=== PATIENT | male | born 1960 | race African-American/Black ===

== ENCOUNTER 2017-03-08 13:27 | Inpatient (IN) | payer OTHER ==
[2017-03-08 16:21] LABS: Hematocrit 38 % (42-52); Hemoglobin 12.4 g/dl (14.0-18.0); Mean Corpuscular HGB Conc 33 g/dl (31-36); Mean Corpuscular Hemoglobin 33 pg (27-31); Mean Corpuscular Volume 99 fL (80-94); Mean Platelet Volume 8 um3 (7.4-10.4); Red Cell Distribution Width 14 % (10.5-15)
[2017-03-08 16:23] LABS: ALT 19 U/L (7-52); AST 34 U/L (13-39); Albumin 4.2 g/dL (3.2-5.2); Alkaline Phosphatase 102 U/L (34-104); Anion Gap 8 mmol/L (2-11); BUN/Creatinine Ratio 7.1 (8-20); Blood Urea Nitrogen 6 mg/dL (6-24); CO2 Carbon Dioxide 22 mmol/L (22-32); Calcium 9.4 mg/dL (8.6-10.3); Chloride 107 mmol/L (101-111); EGFR African American 120.8 (>60); EGFR Non-African American 93.9 (>60); Globulin 2.9 g/dL (2-4); Glucose 80 mg/dL (70-100); Potassium 3.8 mmol/L (3.5-5.0); Sodium 137 mmol/L (133-145); Total Protein 7.1 g/dL (6.4-8.9)
[2017-03-08 17:04] LABS: Acetaminophen < 15 mcg/mL; Alcohol 23 mg/dL (<10); Salicylate < 2.50 mg/dL (<30)
[2017-03-08 17:07] LABS: TSH (Thyroid Stimulating Horm) 0.74 mcIU/mL (0.34-5.60)
[2017-03-08 20:17] LABS: Urine Bilirubin Negative (Negative); Urine Glucose Negative (Negative); Urine Nitrite Negative (Negative)
[2017-03-08 20:31] LABS: Benzodiazepine Urine Screen None Detected (None Detect)
--- NOTE | 2017-03-08 22:12 | ED ---
Rebecca Childers Alok, scribed for Osmany Pepe MD on 03/08/17 at 2206 . Progress - Progress Note Progress Note: @ 2113: 9.13 voluntary paper work done for pt admission with dx of psychosis to the behavioral health unit. condition stable - Consult/PCP Time Called: 18:00 Course/Dx - Diagnoses Provider Diagnoses: Psychosis The documentation as recorded by the lizethibRebecca sepulveda Alok accurately reflects the service I personally performed and the decisions made by me, Osmany Pepe MD.
[2017-03-08] MEDS: busPIRone TAB* 30 MG PO SCH (22:15)
[2017-03-08] MEDS ORDERED: Al Hydrox/Mg Hydrox/Simet LIQ* 30 ML UDC PO PRN (22:28)
[2017-03-08] MEDS ORDERED: Mouth Piece, Nicotine* 1 EACH CARTRIDGE INH SCH (22:28)
[2017-03-08] MEDS ORDERED: busPIRone TAB* 30 MG ONE (22:35)
[2017-03-09] MEDS: Vitamin THERAPEUTIC TAB PO SCH (08:09)
[2017-03-09] MEDS: busPIRone TAB* 30 MG PO SCH ×2 (08:09→20:10)
--- NOTE | 2017-03-09 11:06 | ED ---
Hever Childers Auryana, scribed for Cornelio Sanchez MD on 03/08/17 at 1444 . Psychiatric Complaint - HPI Summary HPI Summary: 56 y/o male presents to ED with visual and auditory hallucinations "for days". Patient denies SI and HI, but nurse says that patient "wanted to get hit with a car." He denies CP and SOB. PMHx of depression-Rx. - History Of Current Complaint Time Seen by Provider: 03/08/17 15:11 Hx Obtained From: Patient Onset/Duration: Lasting Days, Still Present Timing: Constant Severity Initially: Mild Severity Currently: Mild Character: Depressed Associated Signs And Symptoms: Positive: Hallucinating - Visual and auditory Related History: Positive For: Prior Psychiatric Issues - History of depression Has Suicidal: Denies: Thoughts Has Homicidal: Denies: Thoughts - Allergies/Home Medications Allergies/Adverse Reactions: Allergies Allergy/AdvReac Type Severity Reaction Status Date / Time Aspirin Allergy SEVERE GI Verified 02/24/16 13:03 UPSET Home Medications: Home Medications Allopurinol TAB* [Zyloprim 100 MG TAB*] 100 mg PO DAILY 03/08/17 [History Confirmed 03/08/17] Cetirizine* [ZyrTEC 10 MG TAB*] 10 mg PO DAILY 03/08/17 [History Confirmed 03/08] Elbasivir/Grazoprevir 50/100(N [Zepatier 50/100(NF)] 1 tab PO DAILY 03/08/17 [ History Confirmed 03/08/17] busPIRone TAB* [Buspar TAB *] 30 mg PO BID 03/08/17 [History Confirmed 03/08/17] PMH/Surg Hx/FS Hx/Imm Hx Cardiovascular History: Reports: Hx Hypertension - NO MEDS NOW Denies: Hx Pacemaker/ICD GI History: Denies: Other GI Disorders History: Denies: Other Problems/Disorders Musculoskeletal History: Reports: Hx Arthritis - BILATERAL KNEES, Hx Rheumatoid Arthritis, Other Musculoskeletal History - GOUT-BILATERAL KNEES, GREAT TOES, SHOULDERS, WRIST Sensory History: Denies: Hx Contacts or Glasses, Hx Hearing Aid Opthamlomology History: Denies: Hx Contacts or Glasses Neurological History: Denies: Other Neuro Impairments/Disorders Psychiatric History: Denies: Hx Panic Disorder - Cancer History Cancer Type, Location and Year: PROSTATE - Surgical History Surgery Procedure, Year, and Place: 2009 RIGHT KN[place]THROSCOPIC [place] [facility] [place] [facility] [place], [facility] Hx Anesthesia Reactions: No Infectious Disease History: Denies: Traveled Outside the [place] in Last 30 Days - Family History Known Family History: Positive: Cardiac Disease, Hypertension - Social History Occupation: Unemployed Lives: With Family - Alcohol Use: Daily Alcohol Amount: 2 PER DAY Substance Use Type: Reports: None Smoking Status (MU): Light Every Day Tobacco Smoker Amount Used/How Often: 1/2 PACK A DAY Length of Time of Smoking/Using Tobacco: 10 PLUS YEARS Have You Smoked in the Last Year: Yes Review of Systems Constitutional: Negative Negative: Fever Eyes: Negative ENT: Negative Cardiovascular: Negative Negative: Chest Pain Respiratory: Negative Negative: Shortness Of Breath Gastrointestinal: Negative Genitourinary: Negative Musculoskeletal: Negative Skin: Negative Neurological: Negative Positive: Depressed All Other Systems Reviewed And Are Negative: Yes Physical Exam - Summary Physical Exam Summary: VITAL SIGNS: Reviewed. GENERAL: Patient is a well-developed and nourished male who is lying comfortable in the stretcher. Patient is not in any acute respiratory distress. HEAD AND FACE: No signs of trauma. No ecchymosis, hematomas or skull depressions. No sinus tenderness. EYES: PERRLA, EOMI x 2, No injected conjunctiva, no nystagmus. EARS: Hearing grossly intact. Ear canals and tympanic membranes are within normal limits. MOUTH: Oropharynx within normal limits. NECK: Supple, trachea is midline, no adenopathy, no JVD, no carotid bruit, no c- spine tenderness, neck with full ROM. CHEST: Symmetric, no tenderness at palpation LUNGS: Clear to auscultation bilaterally. No wheezing or crackles. CVS: Regular rate and rhythm, S1 and S2 present, no murmurs or gallops appreciated. ABDOMEN: Soft, non-tender. No signs of distention. No rebound no guarding, and no masses palpated. Bowel sounds are normal. EXTREMITIES: FROM in all major joints, no edema, no cyanosis or clubbing. NEURO: Alert and oriented x 3. No acute neurological deficits. Speech is normal and follows commands. SKIN: Dry and warm PSYCH: Depressed, quiet, and denies any suicidal thoughts or plan. No homicidal thoughts or plan. No signs of psychosis or pressure speech. No tangential speech. Triage Information Reviewed: Yes Vital Signs On Initial Exam: Initial Vitals Temp Pulse Resp BP Pulse Ox 99.1 F 68 16 110/58 99 03/08/17 13:40 03/08/17 13:40 03/08/17 13:40 03/08/17 13:40 03/08/17 13:40 Vital Signs Reviewed: Yes Diagnostics - Vital Signs Vital Signs Temp Pulse Resp BP Pulse Ox 03/08/17 13:40 99.1 F 68 16 110/58 99 - Laboratory Lab Results: Lab Results 03/08/17 03/08/17 Range/Units 15:59 15:59 WBC 7.0 (3.5-10.8) 10^3/ul RBC 3.80 L (4.0-5.4) 10^6/ul Hgb 12.4 L (14.0-18.0) g/dl Hct 38 L (42-52) % MCV 99 H (80-94) fL MCH 33 H (27-31) pg MCHC 33 (31-36) g/dl RDW 14 (10.5-15) % Plt Count 342 (150-450) 10^3/ul MPV 8 (7.4-10.4) um3 Neut % (Auto) 53.9 (38-83) % Lymph % (Auto) 36.9 (25-47) % [place] % (Auto) 6.1 (1-9) % Eos % (Auto) 2.2 (0-6) % Baso % (Auto) 0.9 (0-2) % Absolute Neuts (auto) 3.8 (1.5-7.7) 10^3/ul Absolute Lymphs (auto) 2.6 (1.0-4.8) 10^3/ul Absolute Monos (auto) 0.4 (0-0.8) 10^3/ul Absolute Eos (auto) 0.2 (0-0.6) 10^3/ul Absolute Basos (auto) 0.1 (0-0.2) 10^3/ul Absolute Nucleated RBC 0.02 10^3/ul Nucleated RBC % 0.3 Sodium 137 (133-145) mmol/L Potassium 3.8 (3.5-5.0) mmol/L Chloride 107 (101-111) mmol/L Carbon Dioxide 22 (22-32) mmol/L Anion Gap 8 (2-11) mmol/L BUN 6 (6-24) mg/dL Creatinine 0.85 (0.67-1.17) mg/dL Est GFR ( Amer) 120.8 (>60) Est GFR (Non-Af Amer) 93.9 (>60) BUN/Creatinine Ratio 7.1 L (8-20) Glucose 80 (70-100) mg/dL Calcium 9.4 (8.6-10.3) mg/dL Total Bilirubin 0.70 (0.2-1.0) mg/dL AST 34 (13-39) U/L ALT 19 (7-52) U/L Alkaline Phosphatase 102 (34-104) U/L Total Protein 7.1 (6.4-8.9) g/dL Albumin 4.2 (3.2-5.2) g/dL Globulin 2.9 (2-4) g/dL Albumin/Globulin Ratio 1.4 (1-3) TSH 0.74 (0.34-5.60) mcIU/mL Salicylates < 2.50 (<30) mg/dL Acetaminophen < 15 mcg/mL Serum Alcohol 23 H (<10) mg/dL Result Diagrams: 03/08/17 15:59 03/08/17 15:59 Lab Statement: Any lab studies that have been ordered have been reviewed, and results considered in the medical decision making process. Course/Dx - Course Assessment/Plan: All blood work WNL. He is medically cleared at 16:30. He is awaiting for a MHE - pending on signout to DR. LARSEN at 19:00. . Patient is hemodynamically stable and A+O x 3. - Differential Dx/Clinical Impression Differential Diagnosis/HQI/PQRI: Positive: Depression, Other - Auditory and Visual hallucinations Provider Diagnosis: Psychosis Discharge - Discharge Plan Condition: Stable Disposition: OTHER Discharge Disposition Comment: SIGNOUT TO DR. LARSEN AT 19:00 PENDING MHE AND DISPOSITION The documentation as recorded by the Hever abdi Auryana accurately reflects the service I personally performed and the decisions made by , Cornelio Sanchez MD.
[2017-03-09] MEDS: Acetaminophen TAB* 325 MG PO PRN (11:37)
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
[2017-03-10] MEDS: Cyanocobalamin TAB* 500 MCG PO SCH (08:42)
[2017-03-10] MEDS: busPIRone TAB* 30 MG PO SCH ×2 (08:42→20:05)
[2017-03-10] MEDS: Folic Acid TAB* 1 MG PO SCH (08:43)
[2017-03-10] MEDS: Thiamine TAB* 100 MG TAB PO SCH (08:43)
[2017-03-10] MEDS: Vitamin THERAPEUTIC TAB PO SCH (08:43)
[2017-03-10] MEDS: Acetaminophen TAB* 325 MG PO PRN (16:15)
[2017-03-11] MEDS: Folic Acid TAB* 1 MG PO SCH (08:28)
[2017-03-11] MEDS: Thiamine TAB* 100 MG TAB PO SCH (08:28)
[2017-03-11] MEDS: busPIRone TAB* 30 MG PO SCH ×2 (08:28→20:03)
[2017-03-11] MEDS: Vitamin THERAPEUTIC TAB PO SCH (08:28)
[2017-03-11] MEDS: Cyanocobalamin TAB* 500 MCG PO SCH (08:28)
--- NOTE | 2017-03-11 13:10 | PN ---
MHU: Group Therapy Note - Service Type Service Type: 87133 Group Psychotherapy - Cognitive Behavioral Group Therapy ( CBT):Patient was attentive and participatory in CBT programming this morning, and remained in good behavioral control. Patient expressed positive insights regarding relevant treatment interventions and goals.
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
[2017-03-11] MEDS: diPHENhydraMINE PO* 25 MG PO PRN (13:55)
--- NOTE | 2017-03-11 14:09 | RAD ---
Indication: Confusion. CT of the brain was performed without IV contrast. Ventricular structures are midline. No midline shift is noted. The extra-axial spaces are unremarkable. There is no evidence of intracranial mass or hemorrhage. No other high or low density lesions are identified. Mastoid air cells and paranasal sinuses are unremarkable. IMPRESSION: No intracranial mass or hemorrhage is noted.
[2017-03-11] MEDS: Allopurinol TAB* 100 MG PO SCH (16:25)
[2017-03-11] MEDS: ELBASVIR PO SCH (16:26)
[2017-03-11] MEDS: GRAZOPREVIR PO SCH (16:26)
[2017-03-11] MEDS: Colchicine* 0.6 MG TAB PO SCH (20:04)
[2017-03-11] MEDS: risperiDONE TAB* 1 MG PO SCH (20:04)
[2017-03-12] MEDS: busPIRone TAB* 30 MG PO SCH ×2 (07:53→19:56)
[2017-03-12] MEDS: Vitamin THERAPEUTIC TAB PO SCH (07:53)
[2017-03-12] MEDS: Colchicine* 0.6 MG TAB PO SCH ×2 (07:53→19:56)
[2017-03-12] MEDS: Allopurinol TAB* 100 MG PO SCH (07:53)
[2017-03-12] MEDS: Thiamine TAB* 100 MG TAB PO SCH (07:53)
[2017-03-12] MEDS: Cyanocobalamin TAB* 500 MCG PO SCH (07:53)
[2017-03-12] MEDS: Folic Acid TAB* 1 MG PO SCH (07:53)
[2017-03-12 08:07] LABS: HDL Cholesterol 52.5 mg/dL
[2017-03-12] MEDS: GRAZOPREVIR PO SCH ×2 (09:24→14:02)
[2017-03-12] MEDS: ELBASVIR PO SCH ×2 (09:24→14:02)
[2017-03-12] MEDS: diPHENhydraMINE PO* 25 MG PO PRN (15:34)
[2017-03-12] MEDS ORDERED: Mouth Piece, Nicotine* 1 EACH CARTRIDGE ONE (16:10)
[2017-03-12] MEDS: Nicotine Inhaler* 10 MG AMP INH PRN (16:10)
--- NOTE | 2017-03-12 16:32 | PN ---
Subjective - Subjective Service Type: 07491 Hosp care 15 min low complexity Subjective: The patient remains confused but good natured. His has spoken to SW and reported that she cannot continue to care for Shayan in her home. The patient c/o left great toe pain for three days duration. Otherwise, he offers no complaints and cannot tell why he is in the hospital. He denies SI or HI. Objective - Appearance Appearance: Well Developed/Nourished Dysmorphic Features: No Grooming: Fairly Well Kept - Behavior Psychomotor Activities: Normal Exhibits Abnormal Movement: No - Attitude and Relatedness Attitude and Relatedness: Psychotically Related Eye Contact: Poor - Speech Quality: Unpressured Latencies: Normal Quantity: Terse - Mood Patient's Decription of Mood: "Fine" - Affect Observed Affect: Good Affect Consistent with: Euthymia - Thought Process Patient's Thought Process: Disorganized, Loose Associations Thought Content: No Passive Wish, No Suicidal Planning, No Homicidal Ideation, No Paranoid Ideation - Sensorium Experiencing Hallucinations: No, Sensorium is Clear Type of Hallucinations: Visual: No, Auditory: No, Command: No - Level of Consciousness Level of Consciousness: Alert Orientation: Yes Intact, Yes Orientated to Time, Yes Orientated to Place, Yes Orientated to Person - Impulse Control Impulse Control: Poor - Insight and Judgement Insight and Judgement: Impaired - Group Participation Particating in Group Activities: No - Medication Management Medication Management Adherence: Yes Assessment - Assessment Merits Inpatient Hospitalization: For Immediate Safety, For Stabilization Inpatient DSM-IV Dx: Unspecified psychotic DO Clinical Impression: 56 y.o. , AA male with no documented history of mental illness other than unspecified treatment in the senior living setting, who was brought to the ER for disorganized thought process and HI, worsening over the last several months. Plan - Plan Treatment Plan: Name: SHAYAN OCAMPO Birthdate: 1960 [id number] The patient has started risperidone 1mg PO qhs along with his home meds. Head CT was negative. Will order neurocognitive testing to rule out dementia. Xray of left foot pending. Family meeting when appropriate for d/c planning. Continued Medication Management: Start Medication Medications: Current Medications Acetaminophen (Tylenol Tab*) 650 mg PO Q4H PRN PRN Reason: PAIN or TEMP > 101 F Last Admin: 03/10/17 16:15 Dose: 650 mg Al Hydrox/Mg Hydrox/Simethicone (Maalox Plus*) 30 ml PO Q4H PRN PRN Reason: INDIGESTION Allopurinol (Zyloprim Tab*) 100 mg PO DAILY [facility] Last Admin: 03/12/17 07:53 Dose: 100 mg Buspirone HCl (Buspar Tab*) 30 mg PO BID [facility] Last Admin: 03/12/17 07:53 Dose: 30 mg Colchicine (Colcrys*) 0.6 mg PO BID [facility] Last Admin: 03/12/17 07:53 Dose: 0.6 mg Cyanocobalamin (Vitamin B12 Tab*) 1,000 mcg PO DAILY [facility] Last Admin: 03/12/17 07:53 Dose: 1,000 mcg Device (Nicotine Mouth Piece*) 1 each INH .[place]TRIDGE [facility] Last Admin: 03/12/17 16:10 Dose: 1 each Diphenhydramine HCl (Benadryl Po*) 25 mg PO Q6H PRN PRN Reason: Allergy Symptoms Last Admin: 03/12/17 15:34 Dose: 25 mg Folic Acid (Folvite Tab*) 1 mg PO DAILY [facility] Last Admin: 03/12/17 07:53 Dose: 1 mg Multivitamins (Theragran Tab*) 1 tab PO DAILY [facility] Last Admin: 03/12/17 07:53 Dose: 1 tab Nicotine (Nicotine Inhaler*) 10 mg INH Q2H PRN PRN Reason: CRAVING Last Admin: 03/12/17 16:10 Dose: 10 mg Pto: Elbasivir/Grazoprevir 50/100( Nf) Tab 1 tab PO DAILY [facility] Last Admin: 03/12/17 14:02 Dose: 1 tab Risperidone (Risperdal*) 1 mg PO BEDTIME [facility] Last Admin: 03/11/17 20:04 Dose: 1 mg Thiamine HCl (Vitamin B-1 Tab*) 100 mg PO DAILY [facility] Last Admin: 03/12/17 07:53 Dose: 100 mg - Discharge Plan Discharge Plan: Inpatient Hospitalization
[2017-03-12] MEDS: Acetaminophen TAB* 325 MG PO PRN (18:04)
--- NOTE | 2017-03-12 18:46 | RAD ---
HISTORY: Left great toe pain COMPARISONS: None VIEWS: 3, Frontal, lateral, and oblique views of the left foot FINDINGS: BONE DENSITY: Normal. BONES: There is no displaced fracture. There is an eccentric cortical-based lucent lesion of the proximal fourth metatarsal. There is no appreciable periosteal reaction. This measures approximately 0.6 cm in size. JOINTS: There is advanced osteoarthritis of the first MTP joint. There is mild osteoarthritis of the midfoot ALIGNMENT: There is no dislocation. SOFT TISSUES: Unremarkable. OTHER FINDINGS: None. IMPRESSION: 1. OSTEOARTHRITIS, MOST PRONOUNCED OF THE FIRST MTP JOINT. 2. LUCENT LESION OF THE PROXIMAL FOURTH METATARSAL. THE IMAGING APPEARANCE IS INDETERMINATE. RECOMMEND CONSIDERATION OF FURTHER EVALUATION WITH MRI OF THE MIDFOOT. 3. NO ACUTE OSSEOUS INJURY. IF SYMPTOMS PERSIST, RECOMMEND REPEAT IMAGING.
[2017-03-12] MEDS: risperiDONE TAB* 1 MG PO SCH (19:56)
[2017-03-13] MEDS: ELBASVIR PO SCH (08:06)
[2017-03-13] MEDS: GRAZOPREVIR PO SCH (08:06)
[2017-03-13] MEDS: Colchicine* 0.6 MG TAB PO SCH ×2 (08:06→20:02)
[2017-03-13] MEDS: Allopurinol TAB* 100 MG PO SCH (08:06)
[2017-03-13] MEDS: Vitamin THERAPEUTIC TAB PO SCH (08:06)
[2017-03-13] MEDS: Cyanocobalamin TAB* 500 MCG PO SCH (08:06)
[2017-03-13] MEDS: Thiamine TAB* 100 MG TAB PO SCH (08:06)
[2017-03-13] MEDS: Folic Acid TAB* 1 MG PO SCH (08:06)
[2017-03-13] MEDS: busPIRone TAB* 30 MG PO SCH ×2 (08:07→20:02)
--- NOTE | 2017-03-13 11:11 | PN ---
Subjective - Subjective Service Type: 20653 Hosp care 15 min low complexity Subjective: The patient is initially missing on the unit but is soon found in the foyer the unit from the outside hallway. It appears as though he has wandered in there unintentionally, and then could not get back in. He remains confused, pleasant and amotivational. He denies SI or HI. Objective - Appearance Appearance: Well Developed/Nourished Dysmorphic Features: No Hygiene: Normal Grooming: Fairly Well Kept - Behavior Psychomotor Activities: Normal Exhibits Abnormal Movement: No - Attitude and Relatedness Attitude and Relatedness: Cooperative Eye Contact: Fair - Speech Quality: Unpressured Latencies: Normal Quantity: Terse - Mood Patient's Decription of Mood: "Fine" - Affect Observed Affect: Good Affect Consistent with: Euthymia - Thought Process Patient's Thought Process: Disorganized, Loose Associations Thought Content: No Passive Wish, No Suicidal Planning, No Homicidal Ideation, No Paranoid Ideation - Sensorium Experiencing Hallucinations: No, Sensorium is Clear Type of Hallucinations: Visual: No, Auditory: No, Command: No - Level of Consciousness Level of Consciousness: Alert Orientation: Yes Intact, Yes Orientated to Time, Yes Orientated to Place, Yes Orientated to Person - Impulse Control Impulse Control: Poor - Insight and Judgement Insight and Judgement: Impaired - Group Participation Particating in Group Activities: No - Medication Management Medication Management Adherence: Yes Assessment - Assessment Merits Inpatient Hospitalization: For Immediate Safety, For Stabilization Inpatient DSM-IV Dx: Unspecified psychotic DO Clinical Impression: 56 y.o. , AA male with no documented history of mental illness other than unspecified treatment in the [facility] setting, who was brought to the ER for disorganized thought process and HI, worsening over the last several months. Plan - Plan Treatment Plan: Name: SHAYAN OCAMPO Birthdate: 1960 [id number] The patient has started risperidone 1mg PO qhs along with his home meds. Head CT was negative. Xray of left foot shows osteoarthritic changes. Will switch tylenol to ibuprofen for pain. Will order neurocognitive testing to rule out dementia. Family meeting when appropriate for d/c planning. Continued Medication Management: Start Medication Medications: Current Medications Al Hydrox/Mg Hydrox/Simethicone (Maalox Plus*) 30 ml PO Q4H PRN PRN Reason: INDIGESTION Allopurinol (Zyloprim Tab*) 100 mg PO DAILY [facility] Last Admin: 03/13/17 08:06 Dose: 100 mg Buspirone HCl (Buspar Tab*) 30 mg PO BID [facility] Last Admin: 03/13/17 08:07 Dose: 30 mg Colchicine (Colcrys*) 0.6 mg PO BID [facility] Last Admin: 03/13/17 08:06 Dose: 0.6 mg Cyanocobalamin (Vitamin B12 Tab*) 1,000 mcg PO DAILY [facility] Last Admin: 03/13/17 08:06 Dose: 1,000 mcg Device (Nicotine Mouth Piece*) 1 each INH .[place]TR[place] [facility] Last Admin: 03/12/17 16:10 Dose: 1 each Diphenhydramine HCl (Benadryl Po*) 25 mg PO Q6H PRN PRN Reason: Allergy Symptoms Last Admin: 03/12/17 15:34 Dose: 25 mg Folic Acid (Folvite Tab*) 1 mg PO DAILY [facility] Last Admin: 03/13/17 08:06 Dose: 1 mg Ibuprofen (Motrin Tab*) 800 mg PO Q8H PRN PRN Reason: PAIN Multivitamins (Theragran Tab*) 1 tab PO DAILY [facility] Last Admin: 03/13/17 08:06 Dose: 1 tab Nicotine (Nicotine Inhaler*) 10 mg INH Q2H PRN PRN Reason: CRAVING Last Admin: 03/12/17 16:10 Dose: 10 mg Pto: Elbasivir/Grazoprevir 50/100( Nf) Tab 1 tab PO DAILY [facility] Last Admin: 03/13/17 08:06 Dose: 1 tab Risperidone (Risperdal*) 1 mg PO BEDTIME [facility] Last Admin: 03/12/17 19:56 Dose: 1 mg Thiamine HCl (Vitamin B-1 Tab*) 100 mg PO DAILY [facility] Last Admin: 03/13/17 08:06 Dose: 100 mg - Discharge Plan Discharge Plan: Inpatient Hospitalization
--- NOTE | 2017-03-13 13:02 | PN ---
MHU: Group Therapy Note - Service Type Service Type: 44069 Group Psychotherapy - Cognitive Behavioral Group Therapy ( CBT):Patient was attentive and participatory in CBT programming this morning, and remained in good behavioral control. Patient expressed positive insights regarding relevant treatment interventions and goals.
[2017-03-13] MEDS: Ibuprofen TAB* 800 MG PO PRN (15:11)
[2017-03-13] MEDS: risperiDONE TAB* 1 MG PO SCH (20:02)
[2017-03-14] MEDS: busPIRone TAB* 30 MG PO SCH ×2 (07:39→20:00)
[2017-03-14] MEDS: ELBASVIR PO SCH (07:39)
[2017-03-14] MEDS: GRAZOPREVIR PO SCH (07:39)
[2017-03-14] MEDS: Colchicine* 0.6 MG TAB PO SCH ×2 (07:40→20:00)
[2017-03-14] MEDS: Allopurinol TAB* 100 MG PO SCH (07:40)
[2017-03-14] MEDS: Thiamine TAB* 100 MG TAB PO SCH (07:40)
[2017-03-14] MEDS: Cyanocobalamin TAB* 500 MCG PO SCH (07:40)
[2017-03-14] MEDS: Folic Acid TAB* 1 MG PO SCH (07:41)
[2017-03-14] MEDS: Vitamin THERAPEUTIC TAB PO SCH (07:41)
--- NOTE | 2017-03-14 12:00 | PN ---
Subjective - Subjective Service Type: 64086 Hosp care 15 min low complexity Subjective: The patient is calm, cooperative and in excellent spirits but still has no orientation to his situation and shows no interest in finding out why he is here in the hospital. He denies foot pain at this time and denies SI or HI. Objective - Appearance Appearance: Well Developed/Nourished Dysmorphic Features: No Hygiene: Normal Grooming: Fairly Well Kept - Behavior Psychomotor Activities: Normal Exhibits Abnormal Movement: No - Attitude and Relatedness Attitude and Relatedness: Cooperative Eye Contact: Good - Speech Quality: Unpressured Latencies: Normal Quantity: Terse - Mood Patient's Decription of Mood: "Great" - Affect Observed Affect: Good Affect Consistent with: Euthymia - Thought Process Patient's Thought Process: Disorganized, Loose Associations Thought Content: No Passive Wish, No Suicidal Planning, No Homicidal Ideation, No Paranoid Ideation - Sensorium Experiencing Hallucinations: No, Sensorium is Clear Type of Hallucinations: Visual: No, Auditory: No, Command: No - Level of Consciousness Level of Consciousness: Alert Orientation: Yes Intact, Yes Orientated to Time, Yes Orientated to Place, Yes Orientated to Person - Impulse Control Impulse Control: Poor - Insight and Judgement Insight and Judgement: Impaired - Group Participation Particating in Group Activities: Yes - Medication Management Medication Management Adherence: Yes Assessment - Assessment Merits Inpatient Hospitalization: For Immediate Safety, For Stabilization Inpatient DSM-IV Dx: Unspecified psychotic DO Clinical Impression: 56 y.o. , AA male with no documented history of mental illness other than unspecified treatment in the [facility] setting, who was brought to the ER for disorganized thought process and HI, worsening over the last several months. Plan - Plan Treatment Plan: Name: SHAYAN OCAMPO Birthdate: 1960 [id number] The patient has started risperidone 1mg PO qhs along with his home meds. Head CT was negative. Xray of left foot shows osteoarthritic changes. Await neurocognitive testing to rule out dementia. Family meeting when appropriate for d/c planning. Continued Medication Management: Start Medication Medications: Current Medications Al Hydrox/Mg Hydrox/Simethicone (Maalox Plus*) 30 ml PO Q4H PRN PRN Reason: INDIGESTION Allopurinol (Zyloprim Tab*) 100 mg PO DAILY [facility] Last Admin: 03/14/17 07:40 Dose: 100 mg Buspirone HCl (Buspar Tab*) 30 mg PO BID [facility] Last Admin: 03/14/17 07:39 Dose: 30 mg Colchicine (Colcrys*) 0.6 mg PO BID [facility] Last Admin: 03/14/17 07:40 Dose: 0.6 mg Cyanocobalamin (Vitamin B12 Tab*) 1,000 mcg PO DAILY [facility] Last Admin: 03/14/17 07:40 Dose: 1,000 mcg Device (Nicotine Mouth Piece*) 1 each INH .[place] [facility] Last Admin: 03/12/17 16:10 Dose: 1 each Diphenhydramine HCl (Benadryl Po*) 25 mg PO Q6H PRN PRN Reason: Allergy Symptoms Last Admin: 03/12/17 15:34 Dose: 25 mg Folic Acid (Folvite Tab*) 1 mg PO DAILY [facility] Last Admin: 03/14/17 07:41 Dose: 1 mg Ibuprofen (Motrin Tab*) 800 mg PO Q8H PRN PRN Reason: PAIN Last Admin: 03/13/17 15:11 Dose: 800 mg Multivitamins (Theragran Tab*) 1 tab PO DAILY [facility] Last Admin: 03/14/17 07:41 Dose: 1 tab Nicotine (Nicotine Inhaler*) 10 mg INH Q2H PRN PRN Reason: CRAVING Last Admin: 03/12/17 16:10 Dose: 10 mg Pto: Elbasivir/Grazoprevir 50/100( Nf) Tab 1 tab PO DAILY [facility] Last Admin: 03/14/17 07:39 Dose: 1 tab Risperidone (Risperdal*) 1 mg PO BEDTIME [facility] Last Admin: 03/13/17 20:02 Dose: 1 mg Thiamine HCl (Vitamin B-1 Tab*) 100 mg PO DAILY [facility] Last Admin: 03/14/17 07:40 Dose: 100 mg - Discharge Plan Discharge Plan: Inpatient Hospitalization
--- NOTE | 2017-03-14 13:08 | PN ---
MHU: Group Therapy Note - Service Type Service Type: 63310 Group Psychotherapy - Cognitive Behavioral Group Therapy ( CBT):Patient was attentive and participatory in CBT programming this morning, and remained in good behavioral control. Patient expressed positive insights regarding relevant treatment interventions and goals.
[2017-03-14] MEDS: risperiDONE TAB* 1 MG PO SCH (20:00)
[2017-03-15] MEDS: Cyanocobalamin TAB* 500 MCG PO SCH (07:53)
[2017-03-15] MEDS: Allopurinol TAB* 100 MG PO SCH (07:53)
[2017-03-15] MEDS: busPIRone TAB* 30 MG PO SCH ×2 (07:53→20:11)
[2017-03-15] MEDS: Vitamin THERAPEUTIC TAB PO SCH (07:53)
[2017-03-15] MEDS: Folic Acid TAB* 1 MG PO SCH (07:53)
[2017-03-15] MEDS: Colchicine* 0.6 MG TAB PO SCH ×2 (07:53→20:12)
[2017-03-15] MEDS: GRAZOPREVIR PO SCH (07:54)
[2017-03-15] MEDS: Thiamine TAB* 100 MG TAB PO SCH (07:54)
[2017-03-15] MEDS: ELBASVIR PO SCH (07:54)
[2017-03-15] MEDS: Ibuprofen TAB* 800 MG PO PRN (09:51)
--- NOTE | 2017-03-15 11:27 | PN ---
Subjective - Subjective Service Type: 04788 Hosp care 15 min low complexity Subjective: No change in presentation. Remains pleasantly confused, cooperative yet with no insight into his situation. I observed him interacting with unit psychologist, Dr. Alvarez, so I assume he is participating with the neurocognitive testing we've ordered to see if he likely has a dementing illness. The patient has no complaints today. Objective - Appearance Appearance: Well Developed/Nourished Dysmorphic Features: No Hygiene: Normal Grooming: Fairly Well Kept - Behavior Psychomotor Activities: Normal Exhibits Abnormal Movement: No - Attitude and Relatedness Attitude and Relatedness: Cooperative Eye Contact: Good - Speech Quality: Unpressured Latencies: Normal Quantity: Terse - Mood Patient's Decription of Mood: "Great" - Affect Observed Affect: Good Affect Consistent with: Euthymia - Thought Process Patient's Thought Process: Disorganized, Loose Associations Thought Content: No Passive Wish, No Suicidal Planning, No Homicidal Ideation, No Paranoid Ideation - Sensorium Experiencing Hallucinations: No, Sensorium is Clear Type of Hallucinations: Visual: No, Auditory: No, Command: No - Level of Consciousness Level of Consciousness: Alert Orientation: Yes Orientated to Person, No Intact, No Orientated to Time, No Orientated to Place - Impulse Control Impulse Control: Tenuous - Insight and Judgement Insight and Judgement: Impaired - Group Participation Particating in Group Activities: Yes - Medication Management Medication Management Adherence: Yes Assessment - Assessment Merits Inpatient Hospitalization: Diagnosis Determination, Consolidate Improvements, For Discharge Planning Inpatient DSM-IV Dx: Unspecified psychotic DO Clinical Impression: 56 y.o. , AA male with no documented history of mental illness other than unspecified treatment in the [facility] setting, who was brought to the ER for disorganized thought process and HI, worsening over the last several months. Plan - Plan Treatment Plan: Name: SHAYAN OCAMPO Birthdate: 1960 [id number] The patient has started risperidone 1mg PO qhs along with his home meds. Head CT was negative. Xray of left foot shows osteoarthritic changes. Await neurocognitive testing to rule out dementia. Family meeting when appropriate for d/c planning. Continued Medication Management: Start Medication Medications: Current Medications Al Hydrox/Mg Hydrox/Simethicone (Maalox Plus*) 30 ml PO Q4H PRN PRN Reason: INDIGESTION Allopurinol (Zyloprim Tab*) 100 mg PO DAILY [facility] Last Admin: 03/15/17 07:53 Dose: 100 mg Buspirone HCl (Buspar Tab*) 30 mg PO BID [facility] Last Admin: 03/15/17 07:53 Dose: 30 mg Colchicine (Colcrys*) 0.6 mg PO BID [facility] Last Admin: 03/15/17 07:53 Dose: 0.6 mg Cyanocobalamin (Vitamin B12 Tab*) 1,000 mcg PO DAILY [facility] Last Admin: 03/15/17 07:53 Dose: 1,000 mcg Device (Nicotine Mouth Piece*) 1 each INH .[place]TR[place] [facility] Last Admin: 03/12/17 16:10 Dose: 1 each Diphenhydramine HCl (Benadryl Po*) 25 mg PO Q6H PRN PRN Reason: Allergy Symptoms Last Admin: 03/12/17 15:34 Dose: 25 mg Folic Acid (Folvite Tab*) 1 mg PO DAILY [facility] Last Admin: 03/15/17 07:53 Dose: 1 mg Ibuprofen (Motrin Tab*) 800 mg PO Q8H PRN PRN Reason: PAIN Last Admin: 03/15/17 09:51 Dose: 800 mg Multivitamins (Theragran Tab*) 1 tab PO DAILY [facility] Last Admin: 03/15/17 07:53 Dose: 1 tab Nicotine (Nicotine Inhaler*) 10 mg INH Q2H PRN PRN Reason: CRAVING Last Admin: 03/12/17 16:10 Dose: 10 mg Pto: Elbasivir/Grazoprevir 50/100( Nf) Tab 1 tab PO DAILY [facility] Last Admin: 03/15/17 07:54 Dose: 1 tab Risperidone (Risperdal*) 1 mg PO BEDTIME [facility] Last Admin: 03/14/17 20:00 Dose: 1 mg Thiamine HCl (Vitamin B-1 Tab*) 100 mg PO DAILY [facility] Last Admin: 03/15/17 07:54 Dose: 100 mg - Discharge Plan Discharge Plan: Inpatient Hospitalization
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
[2017-03-15] MEDS: risperiDONE TAB* 1 MG PO SCH (20:12)
[2017-03-16] MEDS: Ibuprofen TAB* 800 MG PO PRN (08:26)
[2017-03-16] MEDS: Colchicine* 0.6 MG TAB PO SCH ×2 (08:27→20:07)
[2017-03-16] MEDS: Vitamin THERAPEUTIC TAB PO SCH (08:28)
[2017-03-16] MEDS: Allopurinol TAB* 100 MG PO SCH (08:28)
[2017-03-16] MEDS: busPIRone TAB* 30 MG PO SCH ×2 (08:28→20:07)
[2017-03-16] MEDS: Cyanocobalamin TAB* 500 MCG PO SCH (08:29)
[2017-03-16] MEDS: Thiamine TAB* 100 MG TAB PO SCH (08:29)
[2017-03-16] MEDS: Folic Acid TAB* 1 MG PO SCH (08:29)
[2017-03-16] MEDS: ELBASVIR PO SCH (09:26)
[2017-03-16] MEDS: GRAZOPREVIR PO SCH (09:26)
[2017-03-16] MEDS: risperiDONE TAB* 1 MG PO SCH (20:07)
[2017-03-17] MEDS: GRAZOPREVIR PO SCH (08:20)
[2017-03-17] MEDS: Vitamin THERAPEUTIC TAB PO SCH (08:20)
[2017-03-17] MEDS: Folic Acid TAB* 1 MG PO SCH (08:20)
[2017-03-17] MEDS: ELBASVIR PO SCH (08:20)
[2017-03-17] MEDS: Thiamine TAB* 100 MG TAB PO SCH (08:21)
[2017-03-17] MEDS: busPIRone TAB* 30 MG PO SCH ×2 (08:21→19:59)
[2017-03-17] MEDS: Colchicine* 0.6 MG TAB PO SCH ×2 (08:21→19:59)
[2017-03-17] MEDS: Cyanocobalamin TAB* 500 MCG PO SCH (08:22)
[2017-03-17] MEDS: Allopurinol TAB* 100 MG PO SCH (08:22)
[2017-03-17] MEDS: Nicotine Inhaler* 10 MG AMP INH PRN (09:29)
[2017-03-17] MEDS: diPHENhydraMINE PO* 25 MG PO PRN (19:23)
[2017-03-17] MEDS: risperiDONE TAB* 1 MG PO SCH (19:59)
[2017-03-17] MEDS: Ibuprofen TAB* 800 MG PO PRN (20:00)
[2017-03-18] MEDS: Cyanocobalamin TAB* 500 MCG PO SCH (07:57)
[2017-03-18] MEDS: Thiamine TAB* 100 MG TAB PO SCH (07:57)
[2017-03-18] MEDS: busPIRone TAB* 30 MG PO SCH ×2 (07:57→20:06)
[2017-03-18] MEDS: ELBASVIR PO SCH (07:58)
[2017-03-18] MEDS: GRAZOPREVIR PO SCH (07:58)
[2017-03-18] MEDS: Vitamin THERAPEUTIC TAB PO SCH (07:58)
[2017-03-18] MEDS: Folic Acid TAB* 1 MG PO SCH (07:58)
[2017-03-18] MEDS: Allopurinol TAB* 100 MG PO SCH (07:58)
[2017-03-18] MEDS: Colchicine* 0.6 MG TAB PO SCH ×2 (07:58→20:07)
[2017-03-18] MEDS: diPHENhydraMINE PO* 25 MG PO PRN (08:00)
[2017-03-18] MEDS: Ibuprofen TAB* 800 MG PO PRN ×2 (08:01→20:07)
--- NOTE | 2017-03-18 11:54 | PN ---
Subjective - Subjective Service Type: 56295 Hosp care 15 min low complexity Subjective: I met with Shayan again today and reviewed the results of his comprehensive Neurocognitive testing with psychologist Jerel Alvarez and the rest of the treatment team. Shayan's behavior on the unit remains pleasantly disorganized. He has no idea of why he is here on the unit and seems disinterested in finding out. We have observed no violent actions or ideation and he has been safe on all checks. 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 His Full Scale IQ was only 55, while his Verbal Comprehension was only 58 and Perceptual Reasoning Index was only 65. Further cognitive deficits were elicited on his Working Memory test, 69, and his Processing Speed, only 57. The patient is calm and polite on interview with no complaints. He continues to deny SI or HI, laughing when asked about these. Objective - Appearance Appearance: Well Developed/Nourished Dysmorphic Features: No Hygiene: Normal Grooming: Fairly Well Kept - Behavior Psychomotor Activities: Normal Exhibits Abnormal Movement: No - Attitude and Relatedness Attitude and Relatedness: Cooperative Eye Contact: Good - Speech Quality: Unpressured Latencies: Normal Quantity: Terse - Mood Patient's Decription of Mood: "Good" - Affect Observed Affect: Good Affect Consistent with: Euthymia - Thought Process Patient's Thought Process: Disorganized, Loose Associations Thought Content: No Passive Wish, No Suicidal Planning, No Homicidal Ideation, No Paranoid Ideation - Sensorium Experiencing Hallucinations: No, Sensorium is Clear Type of Hallucinations: Visual: No, Auditory: No, Command: No - Impulse Control Impulse Control: Poor - Insight and Judgement Insight and Judgement: Impaired - Group Participation Particating in Group Activities: Yes - Medication Management Medication Management Adherence: Yes Assessment - Assessment Merits Inpatient Hospitalization: For Immediate Safety, For Stabilization Inpatient DSM-IV Dx: Mild Neurocogntive Disorder Clinical Impression: 56 y.o. , AA male with no documented history of mental illness other than unspecified treatment in the alf setting, who was brought to the ER for disorganized thought process and HI, worsening over the last several months. Plan - Plan Treatment Plan: Name: SHAYAN OCAMPO Birthdate: 1960 [id number] We now have objective evidence to validate the diagnosis of mild neurocognitive disorder. He is not safe to live independently and would benefit from a structured residential setting. He is not violent nor a risk to others, but could easily wander off and get into trouble if discharged back to his family, who cannot provide 24-hour supervision. Prior to confirming his dementia we had started risperidone 1mg PO qhs, which he has tolerated well, but this is not a safe medication in the dementia population. We will replace it with a trial of quetiapine 200mg PO qhs. Await assisted placement. Continued Medication Management: Start Medication Medications: Current Medications Al Hydrox/Mg Hydrox/Simethicone (Maalox Plus*) 30 ml PO Q4H PRN PRN Reason: INDIGESTION Allopurinol (Zyloprim Tab*) 100 mg PO DAILY [facility] Last Admin: 03/18/17 07:58 Dose: 100 mg Buspirone HCl (Buspar Tab*) 30 mg PO BID [facility] Last Admin: 03/18/17 07:57 Dose: 30 mg Colchicine (Colcrys*) 0.6 mg PO BID [facility] Last Admin: 03/18/17 07:58 Dose: 0.6 mg Cyanocobalamin (Vitamin B12 Tab*) 1,000 mcg PO DAILY [facility] Last Admin: 03/18/17 07:57 Dose: 1,000 mcg Device (Nicotine Mouth Piece*) 1 each INH .CARTRIDGE [facility] Last Admin: 03/12/17 16:10 Dose: 1 each Diphenhydramine HCl (Benadryl Po*) 25 mg PO Q6H PRN PRN Reason: Allergy Symptoms Last Admin: 03/18/17 08:00 Dose: 25 mg Folic Acid (Folvite Tab*) 1 mg PO DAILY [facility] Last Admin: 03/18/17 07:58 Dose: 1 mg Ibuprofen (Motrin Tab*) 800 mg PO Q8H PRN PRN Reason: PAIN Last Admin: 03/18/17 08:01 Dose: 800 mg Multivitamins (Theragran Tab*) 1 tab PO DAILY [facility] Last Admin: 03/18/17 07:58 Dose: 1 tab Nicotine (Nicotine Inhaler*) 10 mg INH Q2H PRN PRN Reason: CRAVING Last Admin: 03/17/17 09:29 Dose: 10 mg Pto: Elbasivir/Grazoprevir 50/100( Nf) Tab 1 tab PO DAILY [facility] Last Admin: 03/18/17 07:58 Dose: 1 tab Quetiapine Fumarate (Seroquel Tab*) 200 mg PO BEDTIME [facility] Thiamine HCl (Vitamin B-1 Tab*) 100 mg PO DAILY [facility] Last Admin: 03/18/17 07:57 Dose: 100 mg - Discharge Plan Discharge Plan: Inpatient Hospitalization
[2017-03-18] MEDS: QUEtiapine TAB* 100 MG PO SCH (20:06)
[2017-03-19] MEDS: Ibuprofen TAB* 800 MG PO PRN ×2 (07:56→20:04)
[2017-03-19] MEDS: Cyanocobalamin TAB* 500 MCG PO SCH (07:58)
[2017-03-19] MEDS: GRAZOPREVIR PO SCH (07:58)
[2017-03-19] MEDS: Allopurinol TAB* 100 MG PO SCH (07:58)
[2017-03-19] MEDS: Colchicine* 0.6 MG TAB PO SCH ×2 (07:58→20:03)
[2017-03-19] MEDS: busPIRone TAB* 30 MG PO SCH ×2 (07:58→20:56)
[2017-03-19] MEDS: ELBASVIR PO SCH (07:58)
[2017-03-19] MEDS: Vitamin THERAPEUTIC TAB PO SCH (07:59)
[2017-03-19] MEDS: Thiamine TAB* 100 MG TAB PO SCH (07:59)
[2017-03-19] MEDS: Folic Acid TAB* 1 MG PO SCH (07:59)
--- NOTE | 2017-03-19 10:53 | PN ---
Subjective - Subjective Service Type: 94296 Hosp care 15 min low complexity Subjective: Shayan is calm and cooperative. He demonstrates no understanding of why he's here on the unit. Patient seems to have tolerated the switch from risperidone to quetiapine therapy. He is not violent nor voicing HI. Objective - Appearance Appearance: Well Developed/Nourished Dysmorphic Features: No Hygiene: Normal Grooming: Fairly Well Kept - Behavior Psychomotor Activities: Normal Exhibits Abnormal Movement: No - Attitude and Relatedness Attitude and Relatedness: Cooperative Eye Contact: Fair - Speech Quality: Unpressured Latencies: Normal Quantity: Terse - Mood Patient's Decription of Mood: "Fine" - Affect Observed Affect: Fair Affect Consistent with: Euthymia - Thought Process Patient's Thought Process: Disorganized, Loose Associations Thought Content: No Passive Wish, No Suicidal Planning, No Homicidal Ideation, No Paranoid Ideation - Sensorium Experiencing Hallucinations: No, Sensorium is Clear Type of Hallucinations: Visual: No, Auditory: No, Command: No - Level of Consciousness Level of Consciousness: Alert Orientation: Yes Orientated to Person, No Intact, No Orientated to Time, No Orientated to Place - Impulse Control Impulse Control: Poor - Insight and Judgement Insight and Judgement: Impaired - Group Participation Particating in Group Activities: No - Medication Management Medication Management Adherence: Yes Assessment - Assessment Merits Inpatient Hospitalization: Consolidate Improvements, Pending Safe DC Plan Inpatient DSM-IV Dx: Mild Neurocogntive Disorder Clinical Impression: 56 y.o. , AA male with no documented history of mental illness other than [facility], who was brought to the ER for disorganized thought process and HI, worsening over the last several months. Plan - Plan Treatment Plan: Name: SHAYAN OCAMPO Birthdate: 1960 [id number] We now have objective evidence to validate the diagnosis of mild neurocognitive disorder. He is not safe to live independently and would benefit from a structured residential setting. He is not violent nor a risk to others, but could easily wander off and get into trouble if discharged back to his family, who cannot provide 24-hour supervision. He is tolerating quetiapine 200mg PO qhs well. Await [facility] placement. Continued Medication Management: Start Medication Medications: Current Medications Al Hydrox/Mg Hydrox/Simethicone (Maalox Plus*) 30 ml PO Q4H PRN PRN Reason: INDIGESTION Allopurinol (Zyloprim Tab*) 100 mg PO DAILY [facility] Last Admin: 03/19/17 07:58 Dose: 100 mg Buspirone HCl (Buspar Tab*) 30 mg PO BID [facility] Last Admin: 03/19/17 07:58 Dose: 30 mg Colchicine (Colcrys*) 0.6 mg PO BID [facility] Last Admin: 03/19/17 07:58 Dose: 0.6 mg Cyanocobalamin (Vitamin B12 Tab*) 1,000 mcg PO DAILY [facility] Last Admin: 03/19/17 07:58 Dose: 1,000 mcg Device (Nicotine Mouth Piece*) 1 each INH .CARTRIDGE [facility] Last Admin: 03/12/17 16:10 Dose: 1 each Diphenhydramine HCl (Benadryl Po*) 25 mg PO Q6H PRN PRN Reason: Allergy Symptoms Last Admin: 03/18/17 08:00 Dose: 25 mg Folic Acid (Folvite Tab*) 1 mg PO DAILY [facility] Last Admin: 03/19/17 07:59 Dose: 1 mg Ibuprofen (Motrin Tab*) 800 mg PO Q8H PRN PRN Reason: PAIN Last Admin: 03/19/17 07:56 Dose: 800 mg Multivitamins (Theragran Tab*) 1 tab PO DAILY [facility] Last Admin: 03/19/17 07:59 Dose: 1 tab Nicotine (Nicotine Inhaler*) 10 mg INH Q2H PRN PRN Reason: CRAVING Last Admin: 03/17/17 09:29 Dose: 10 mg Pto: Elbasivir/Grazoprevir 50/100( Nf) Tab 1 tab PO DAILY [facility] Last Admin: 03/19/17 07:58 Dose: 1 tab Quetiapine Fumarate (Seroquel Tab*) 200 mg PO BEDTIME [facility] Last Admin: 03/18/17 20:06 Dose: 200 mg Thiamine HCl (Vitamin B-1 Tab*) 100 mg PO DAILY [facility] Last Admin: 03/19/17 07:59 Dose: 100 mg - Discharge Plan Discharge Plan: Inpatient Hospitalization
[2017-03-19] MEDS: QUEtiapine TAB* 100 MG PO SCH (20:02)
[2017-03-20] MEDS: Ibuprofen TAB* 800 MG PO PRN (07:14)
[2017-03-20] MEDS: Vitamin THERAPEUTIC TAB PO SCH (07:40)
[2017-03-20] MEDS: ELBASVIR PO SCH (07:40)
[2017-03-20] MEDS: GRAZOPREVIR PO SCH (07:40)
[2017-03-20] MEDS: busPIRone TAB* 30 MG PO SCH ×2 (07:41→19:59)
[2017-03-20] MEDS: Colchicine* 0.6 MG TAB PO SCH ×2 (07:41→19:59)
[2017-03-20] MEDS: Thiamine TAB* 100 MG TAB PO SCH (07:41)
[2017-03-20] MEDS: Folic Acid TAB* 1 MG PO SCH (07:41)
[2017-03-20] MEDS: Allopurinol TAB* 100 MG PO SCH (07:41)
[2017-03-20] MEDS: Cyanocobalamin TAB* 500 MCG PO SCH (07:42)
--- NOTE | 2017-03-20 10:47 | PN ---
Subjective - Subjective Service Type: 31758 Hosp care 15 min low complexity Subjective: The patient remains calm and cooperative. Other than some loose boundaries with peers, such as touching people on the shoulder without their consent, and one episode of wandering into the foyer as someone was exiting the unit, the patient has not had any behavioral or management problems on the unit. Family continues to express an inability to meet his needs in the community after discharge. He is tolerating all medications well and has no complaints. Objective - Appearance Appearance: Well Developed/Nourished Dysmorphic Features: No Hygiene: Normal Grooming: Fairly Well Kept - Behavior Psychomotor Activities: Normal Exhibits Abnormal Movement: No - Attitude and Relatedness Attitude and Relatedness: Cooperative Eye Contact: Fair - Speech Quality: Unpressured Latencies: Normal Quantity: Terse - Mood Patient's Decription of Mood: "Great" - Affect Observed Affect: Good Affect Consistent with: Euthymia - Thought Process Patient's Thought Process: Disorganized, Loose Associations Thought Content: No Passive Wish, No Suicidal Planning, No Homicidal Ideation, No Paranoid Ideation - Sensorium Experiencing Hallucinations: No, Sensorium is Clear Type of Hallucinations: Visual: No, Auditory: No, Command: No - Level of Consciousness Level of Consciousness: Alert Orientation: Yes Orientated to Person, No Intact, No Orientated to Time, No Orientated to Place - Impulse Control Impulse Control: Poor - Insight and Judgement Insight and Judgement: Impaired - Group Participation Particating in Group Activities: Yes - Medication Management Medication Management Adherence: Yes Assessment - Assessment Merits Inpatient Hospitalization: Pending Safe DC Plan Inpatient DSM-IV Dx: Mild Neurocogntive Disorder Clinical Impression: 56 y.o. , AA male with no documented history of mental illness other than unspecified treatment in the detention setting, who was brought to the ER for disorganized thought process and HI, worsening over the last several months. Plan - Plan Treatment Plan: Name: SHAYAN OCAMPO Birthdate: 1960 [id number] The patient has dementia and requires a secured residential setting for his safety. He is tolerating medications well and does not need acute inpatient treatment any longer. We will convert his status to Alternate Level of Care and continue to try to find long-term placement in the community. Continued Medication Management: Start Medication Medications: Current Medications Al Hydrox/Mg Hydrox/Simethicone (Maalox Plus*) 30 ml PO Q4H PRN PRN Reason: INDIGESTION Allopurinol (Zyloprim Tab*) 100 mg PO DAILY [facility] Last Admin: 03/20/17 07:41 Dose: 100 mg Buspirone HCl (Buspar Tab*) 30 mg PO BID [facility] Last Admin: 03/20/17 07:41 Dose: 30 mg Colchicine (Colcrys*) 0.6 mg PO BID [facility] Last Admin: 03/20/17 07:41 Dose: 0.6 mg Cyanocobalamin (Vitamin B12 Tab*) 1,000 mcg PO DAILY [facility] Last Admin: 03/20/17 07:42 Dose: 1,000 mcg Device (Nicotine Mouth Piece*) 1 each INH .CARTRIDGE [facility] Last Admin: 03/12/17 16:10 Dose: 1 each Diphenhydramine HCl (Benadryl Po*) 25 mg PO Q6H PRN PRN Reason: Allergy Symptoms Last Admin: 03/18/17 08:00 Dose: 25 mg Folic Acid (Folvite Tab*) 1 mg PO DAILY [facility] Last Admin: 03/20/17 07:41 Dose: 1 mg Ibuprofen (Motrin Tab*) 800 mg PO Q8H PRN PRN Reason: PAIN Last Admin: 03/20/17 07:14 Dose: 800 mg Multivitamins (Theragran Tab*) 1 tab PO DAILY [facility] Last Admin: 03/20/17 07:40 Dose: 1 tab Nicotine (Nicotine Inhaler*) 10 mg INH Q2H PRN PRN Reason: CRAVING Last Admin: 03/17/17 09:29 Dose: 10 mg Quetiapine Fumarate (Seroquel Tab*) 200 mg PO BEDTIME [facility] Last Admin: 03/19/17 20:02 Dose: 200 mg Thiamine HCl (Vitamin B-1 Tab*) 100 mg PO DAILY [facility] Last Admin: 03/20/17 07:41 Dose: 100 mg - Discharge Plan Discharge Plan: Inpatient Hospitalization
[2017-03-20] MEDS: QUEtiapine TAB* 100 MG PO SCH (19:59)
[2017-03-21] MEDS: Allopurinol TAB* 100 MG PO SCH (08:10)
[2017-03-21] MEDS: busPIRone TAB* 30 MG PO SCH ×2 (08:10→20:00)
[2017-03-21] MEDS: Cyanocobalamin TAB* 500 MCG PO SCH (08:10)
[2017-03-21] MEDS: Colchicine* 0.6 MG TAB PO SCH ×2 (08:10→20:00)
[2017-03-21] MEDS: GRAZOPREVIR PO SCH (08:10)
[2017-03-21] MEDS: ELBASVIR PO SCH (08:10)
[2017-03-21] MEDS: Folic Acid TAB* 1 MG PO SCH (08:11)
[2017-03-21] MEDS: Thiamine TAB* 100 MG TAB PO SCH (08:11)
[2017-03-21] MEDS: Vitamin THERAPEUTIC TAB PO SCH (08:11)
[2017-03-21] MEDS: Nicotine Inhaler* 10 MG AMP INH PRN (17:54)
[2017-03-21] MEDS: QUEtiapine TAB* 300 MG PO SCH (20:00)
[2017-03-22] MEDS: Ibuprofen TAB* 800 MG PO PRN (08:04)
[2017-03-22] MEDS: Allopurinol TAB* 100 MG PO SCH (08:05)
[2017-03-22] MEDS: busPIRone TAB* 30 MG PO SCH ×2 (08:05→20:01)
[2017-03-22] MEDS: Cyanocobalamin TAB* 500 MCG PO SCH (08:05)
[2017-03-22] MEDS: Vitamin THERAPEUTIC TAB PO SCH (08:05)
[2017-03-22] MEDS: Thiamine TAB* 100 MG TAB PO SCH (08:06)
[2017-03-22] MEDS: Folic Acid TAB* 1 MG PO SCH (08:06)
[2017-03-22] MEDS: Colchicine* 0.6 MG TAB PO SCH ×2 (08:06→20:02)
[2017-03-22] MEDS: GRAZOPREVIR PO SCH (08:07)
[2017-03-22] MEDS: ELBASVIR PO SCH (08:07)
--- NOTE | 2017-03-22 14:44 | PN ---
Subjective - Subjective Service Type: 45673 Hosp care 15 min low complexity Subjective: Patient c/o right great toe pain from gout. Toenail appears to be coming off. No other complaints or behavioral issues. Objective - Appearance Appearance: Well Developed/Nourished Dysmorphic Features: No Hygiene: Normal Grooming: Fairly Well Kept - Behavior Psychomotor Activities: Normal Exhibits Abnormal Movement: No - Attitude and Relatedness Attitude and Relatedness: Cooperative Eye Contact: Fair - Speech Quality: Unpressured Latencies: Normal Quantity: Terse - Mood Patient's Decription of Mood: "Great" - Affect Observed Affect: Good Affect Consistent with: Euthymia - Thought Process Patient's Thought Process: Coherent Thought Content: No Passive Wish, No Suicidal Planning, No Homicidal Ideation, No Paranoid Ideation - Sensorium Experiencing Hallucinations: No, Sensorium is Clear Type of Hallucinations: Visual: No, Auditory: No, Command: No - Level of Consciousness Level of Consciousness: Alert Orientation: Yes Orientated to Person, No Intact, No Orientated to Time, No Orientated to Place - Impulse Control Impulse Control: Poor - Insight and Judgement Insight and Judgement: Impaired - Group Participation Particating in Group Activities: Yes - Medication Management Medication Management Adherence: Yes Assessment - Assessment Merits Inpatient Hospitalization: Pending Safe DC Plan Inpatient DSM-IV Dx: Mild Neurocogntive Disorder Clinical Impression: 56 y.o. , AA male with no documented history of mental illness other than unspecified treatment in the [facility] setting, who was brought to the ER for disorganized thought process and HI, worsening over the last several months. Plan - Plan Treatment Plan: Name: SHAYAN OCAMPO Birthdate: 1960 [id number] The patient has dementia and requires a secured residential setting for his safety. He is tolerating medications well and does not need acute inpatient treatment any longer. We will convert his status to Alternate Level of Care and continue to try to find fdc placement in the community. Podiatry consult entered for Saturday (03/25) at 4:[address] Macario. Continued Medication Management: Start Medication Medications: Current Medications Al Hydrox/Mg Hydrox/Simethicone (Maalox Plus*) 30 ml PO Q4H PRN PRN Reason: INDIGESTION Allopurinol (Zyloprim Tab*) 100 mg PO DAILY [facility] Last Admin: 03/22/17 08:05 Dose: 100 mg Buspirone HCl (Buspar Tab*) 30 mg PO BID [facility] Last Admin: 03/22/17 08:05 Dose: 30 mg Colchicine (Colcrys*) 0.6 mg PO BID [facility] Last Admin: 03/22/17 08:06 Dose: 0.6 mg Cyanocobalamin (Vitamin B12 Tab*) 1,000 mcg PO DAILY [facility] Last Admin: 03/22/17 08:05 Dose: 1,000 mcg Device (Nicotine Mouth Piece*) 1 each INH .CARTRIDGE [facility] Last Admin: 03/12/17 16:10 Dose: 1 each Diphenhydramine HCl (Benadryl Po*) 25 mg PO Q6H PRN PRN Reason: Allergy Symptoms Last Admin: 03/18/17 08:00 Dose: 25 mg Folic Acid (Folvite Tab*) 1 mg PO DAILY [facility] Last Admin: 03/22/17 08:06 Dose: 1 mg Ibuprofen (Motrin Tab*) 800 mg PO Q8H PRN PRN Reason: PAIN Last Admin: 03/22/17 08:04 Dose: 800 mg Multivitamins (Theragran Tab*) 1 tab PO DAILY [facility] Last Admin: 03/22/17 08:05 Dose: 1 tab Nicotine (Nicotine Inhaler*) 10 mg INH Q2H PRN PRN Reason: CRAVING Last Admin: 03/21/17 17:54 Dose: 10 mg Quetiapine Fumarate (Seroquel Tab*) 300 mg PO BEDTIME [facility] Last Admin: 03/21/17 20:00 Dose: 300 mg Thiamine HCl (Vitamin B-1 Tab*) 100 mg PO DAILY [facility] Last Admin: 03/22/17 08:06 Dose: 100 mg - Discharge Plan Discharge Plan: Inpatient Hospitalization
[2017-03-22] MEDS: QUEtiapine TAB* 300 MG PO SCH (20:02)
[2017-03-22] MEDS: Nicotine Inhaler* 10 MG AMP INH PRN (20:18)
[2017-03-23] MEDS: Cyanocobalamin TAB* 500 MCG PO SCH (08:04)
[2017-03-23] MEDS: Vitamin THERAPEUTIC TAB PO SCH (08:04)
[2017-03-23] MEDS: Folic Acid TAB* 1 MG PO SCH (08:05)
[2017-03-23] MEDS: Colchicine* 0.6 MG TAB PO SCH ×2 (08:05→20:06)
[2017-03-23] MEDS: Allopurinol TAB* 100 MG PO SCH (08:05)
[2017-03-23] MEDS: busPIRone TAB* 30 MG PO SCH ×2 (08:05→20:06)
[2017-03-23] MEDS: Thiamine TAB* 100 MG TAB PO SCH (08:05)
[2017-03-23] MEDS: ELBASVIR PO SCH (08:05)
[2017-03-23] MEDS: GRAZOPREVIR PO SCH (08:05)
[2017-03-23] MEDS: QUEtiapine TAB* 300 MG PO SCH (20:06)
[2017-03-23] MEDS: Ibuprofen TAB* 800 MG PO PRN (20:07)
[2017-03-24] MEDS: Cyanocobalamin TAB* 500 MCG PO SCH (07:59)
[2017-03-24] MEDS: busPIRone TAB* 30 MG PO SCH ×2 (08:00→19:30)
[2017-03-24] MEDS: Thiamine TAB* 100 MG TAB PO SCH (08:00)
[2017-03-24] MEDS: Folic Acid TAB* 1 MG PO SCH (08:00)
[2017-03-24] MEDS: Vitamin THERAPEUTIC TAB PO SCH (08:00)
[2017-03-24] MEDS: GRAZOPREVIR PO SCH (08:02)
[2017-03-24] MEDS: ELBASVIR PO SCH (08:02)
[2017-03-24] MEDS: Allopurinol TAB* 100 MG PO SCH (08:02)
[2017-03-24] MEDS: Colchicine* 0.6 MG TAB PO SCH ×2 (08:02→19:30)
[2017-03-24] MEDS: Ibuprofen TAB* 800 MG PO PRN (18:53)
[2017-03-24] MEDS: QUEtiapine TAB* 300 MG PO SCH (19:30)
[2017-03-25] MEDS: Ibuprofen TAB* 800 MG PO PRN ×2 (07:20→19:55)
[2017-03-25] MEDS: Thiamine TAB* 100 MG TAB PO SCH (08:20)
[2017-03-25] MEDS: Folic Acid TAB* 1 MG PO SCH (08:20)
[2017-03-25] MEDS: busPIRone TAB* 30 MG PO SCH ×2 (08:20→20:09)
[2017-03-25] MEDS: Colchicine* 0.6 MG TAB PO SCH ×2 (08:20→20:09)
[2017-03-25] MEDS: Vitamin THERAPEUTIC TAB PO SCH (08:20)
[2017-03-25] MEDS: Allopurinol TAB* 100 MG PO SCH (08:20)
[2017-03-25] MEDS: ELBASVIR PO SCH (08:20)
[2017-03-25] MEDS: GRAZOPREVIR PO SCH (08:20)
[2017-03-25] MEDS: Cyanocobalamin TAB* 500 MCG PO SCH (08:20)
--- NOTE | 2017-03-25 11:37 | PN ---
Subjective - Subjective Service Type: 72290 Hosp care 15 min low complexity Subjective: There are no changes in the patient's presentation as he is calm, cooperative and confused. No behavioral problems noted. Denies thoughts of harming self or others. Objective - Appearance Appearance: Well Developed/Nourished Dysmorphic Features: No Hygiene: Normal Grooming: Well Kept - Behavior Psychomotor Activities: Normal Exhibits Abnormal Movement: No - Attitude and Relatedness Attitude and Relatedness: Cooperative Eye Contact: Fair - Speech Quality: Unpressured Latencies: Normal Quantity: Terse - Mood Patient's Decription of Mood: "Great" - Affect Observed Affect: Good Affect Consistent with: Euthymia - Thought Process Patient's Thought Process: Disorganized, Loose Associations Thought Content: No Passive Wish, No Suicidal Planning, No Homicidal Ideation, No Paranoid Ideation - Sensorium Experiencing Hallucinations: No, Sensorium is Clear Type of Hallucinations: Visual: No, Auditory: No, Command: No - Level of Consciousness Level of Consciousness: Alert Orientation: Yes Orientated to Person, No Intact, No Orientated to Time, No Orientated to Place - Impulse Control Impulse Control: Poor - Insight and Judgement Insight and Judgement: Impaired - Group Participation Particating in Group Activities: Yes - Medication Management Medication Management Adherence: Yes Assessment - Assessment Merits Inpatient Hospitalization: Pending Safe DC Plan Inpatient DSM-IV Dx: Mild Neurocogntive Disorder Clinical Impression: 56 y.o. , AA male with no documented history of mental illness other than unspecified treatment in the [facility] setting, who was brought to the ER for disorganized thought process and HI, worsening over the last several months. Plan - Plan Treatment Plan: Name: SHAYAN OCAMPO Birthdate: 1960 [id number] The patient has dementia and requires a secured residential setting for his safety. He is tolerating medications well and does not need acute inpatient treatment any longer. We will convert his status to Alternate Level of Care and continue to try to find senior living placement in the community. Podiatry consult entered for Saturday (03/25) at 4:[address] Macario. Continued Medication Management: Start Medication Medications: Current Medications Al Hydrox/Mg Hydrox/Simethicone (Maalox Plus*) 30 ml PO Q4H PRN PRN Reason: INDIGESTION Allopurinol (Zyloprim Tab*) 100 mg PO DAILY [facility] Last Admin: 03/25/17 08:20 Dose: 100 mg Buspirone HCl (Buspar Tab*) 30 mg PO BID [facility] Last Admin: 03/25/17 08:20 Dose: 30 mg Colchicine (Colcrys*) 0.6 mg PO BID [facility] Last Admin: 03/25/17 08:20 Dose: 0.6 mg Cyanocobalamin (Vitamin B12 Tab*) 1,000 mcg PO DAILY [facility] Last Admin: 03/25/17 08:20 Dose: 1,000 mcg Device (Nicotine Mouth Piece*) 1 each INH .CARTRIDGE [facility] Last Admin: 03/12/17 16:10 Dose: 1 each Diphenhydramine HCl (Benadryl Po*) 25 mg PO Q6H PRN PRN Reason: Allergy Symptoms Last Admin: 03/18/17 08:00 Dose: 25 mg Folic Acid (Folvite Tab*) 1 mg PO DAILY [facility] Last Admin: 03/25/17 08:20 Dose: 1 mg Ibuprofen (Motrin Tab*) 800 mg PO Q8H PRN PRN Reason: PAIN Last Admin: 03/25/17 07:20 Dose: 800 mg Multivitamins (Theragran Tab*) 1 tab PO DAILY [facility] Last Admin: 03/25/17 08:20 Dose: 1 tab Nicotine (Nicotine Inhaler*) 10 mg INH Q2H PRN PRN Reason: CRAVING Last Admin: 03/22/17 20:18 Dose: 10 mg Quetiapine Fumarate (Seroquel Tab*) 300 mg PO BEDTIME [facility] Last Admin: 03/24/17 19:30 Dose: 300 mg Thiamine HCl (Vitamin B-1 Tab*) 100 mg PO DAILY [facility] Last Admin: 03/25/17 08:20 Dose: 100 mg - Discharge Plan Discharge Plan: Outpatient Follow Up
--- NOTE | 2017-03-25 14:03 | PN ---
[facility]: Group Therapy Note - Service Type Service Type: 14399 Group Psychotherapy - Cognitive Behavioral Group Therapy ( CBT):Patient presented in CBT programming as disorganized and disruptive in discussion and needed repeated redirection to attend to presented materials.
[2017-03-25] MEDS: QUEtiapine TAB* 300 MG PO SCH (20:09)
[2017-03-26] MEDS: GRAZOPREVIR PO SCH (08:22)
[2017-03-26] MEDS: ELBASVIR PO SCH (08:22)
[2017-03-26] MEDS: Folic Acid TAB* 1 MG PO SCH (08:23)
[2017-03-26] MEDS: Allopurinol TAB* 100 MG PO SCH (08:23)
[2017-03-26] MEDS: busPIRone TAB* 30 MG PO SCH ×2 (08:23→20:02)
[2017-03-26] MEDS: Vitamin THERAPEUTIC TAB PO SCH (08:23)
[2017-03-26] MEDS: Cyanocobalamin TAB* 500 MCG PO SCH (08:23)
[2017-03-26] MEDS: Colchicine* 0.6 MG TAB PO SCH ×2 (08:23→20:02)
[2017-03-26] MEDS: Thiamine TAB* 100 MG TAB PO SCH (08:23)
[2017-03-26] MEDS: QUEtiapine TAB* 300 MG PO SCH (20:03)
[2017-03-27] MEDS: GRAZOPREVIR PO SCH (07:19)
[2017-03-27] MEDS: ELBASVIR PO SCH (07:19)
[2017-03-27] MEDS: Ibuprofen TAB* 800 MG PO PRN ×2 (07:19→19:20)
[2017-03-27] MEDS: Allopurinol TAB* 100 MG PO SCH (07:20)
[2017-03-27] MEDS: Cyanocobalamin TAB* 500 MCG PO SCH (07:20)
[2017-03-27] MEDS: Folic Acid TAB* 1 MG PO SCH (07:20)
[2017-03-27] MEDS: Vitamin THERAPEUTIC TAB PO SCH (07:20)
[2017-03-27] MEDS: Colchicine* 0.6 MG TAB PO SCH ×2 (07:20→20:28)
[2017-03-27] MEDS: busPIRone TAB* 30 MG PO SCH ×2 (07:20→20:28)
[2017-03-27] MEDS: Thiamine TAB* 100 MG TAB PO SCH (07:20)
--- NOTE | 2017-03-27 11:56 | PN ---
[facility]: Group Therapy Note - Service Type Service Type: 91529 Group Psychotherapy - Cognitive Behavioral Group Therapy ( CBT):Patient was attentive and participatory in CBT programming this morning, and remained in good behavioral control. Patient expressed positive insights regarding relevant treatment interventions and goals.
--- NOTE | 2017-03-27 12:01 | PN ---
Subjective - Subjective Service Type: 85904 Hosp care 15 min low complexity Subjective: The patient has no complaints and has been under behavioral control. No new issues. Objective - Appearance Appearance: Well Developed/Nourished Dysmorphic Features: No Hygiene: Normal Grooming: Fairly Well Kept - Behavior Psychomotor Activities: Normal Exhibits Abnormal Movement: No - Attitude and Relatedness Attitude and Relatedness: Cooperative Eye Contact: Fair - Speech Quality: Unpressured Latencies: Normal Quantity: Terse - Mood Patient's Decription of Mood: "Good" - Affect Observed Affect: Fair Affect Consistent with: Euthymia - Thought Process Patient's Thought Process: Disorganized, Loose Associations Thought Content: No Passive Wish, No Suicidal Planning, No Homicidal Ideation, No Paranoid Ideation - Sensorium Experiencing Hallucinations: No, Sensorium is Clear Type of Hallucinations: Visual: No, Auditory: No, Command: No - Level of Consciousness Level of Consciousness: Alert Orientation: Yes Orientated to Person, No Intact, No Orientated to Time, No Orientated to Place - Impulse Control Impulse Control: Poor - Insight and Judgement Insight and Judgement: Impaired - Group Participation Particating in Group Activities: No - Medication Management Medication Management Adherence: Yes Assessment - Assessment Merits Inpatient Hospitalization: Pending Safe DC Plan Inpatient DSM-IV Dx: Mild Neurocogntive Disorder Clinical Impression: 56 y.o. , AA male with no documented history of mental illness other than unspecified treatment in the correction setting, who was brought to the ER for disorganized thought process and HI, worsening over the last several months. Plan - Plan Treatment Plan: Name: SHAYAN OCAMPO Birthdate: 1960 [id number] The patient has dementia and requires a secured residential setting for his safety. He is tolerating medications well and does not need acute inpatient treatment any longer. We will convert his status to Alternate Level of Care and continue to try to find assisted placement in the community. Podiatry consult appreciated. Continued Medication Management: Start Medication Medications: Current Medications Al Hydrox/Mg Hydrox/Simethicone (Maalox Plus*) 30 ml PO Q4H PRN PRN Reason: INDIGESTION Allopurinol (Zyloprim Tab*) 100 mg PO DAILY [facility] Last Admin: 03/27/17 07:20 Dose: 100 mg Buspirone HCl (Buspar Tab*) 30 mg PO BID [facility] Last Admin: 03/27/17 07:20 Dose: 30 mg Colchicine (Colcrys*) 0.6 mg PO BID [facility] Last Admin: 03/27/17 07:20 Dose: 0.6 mg Cyanocobalamin (Vitamin B12 Tab*) 1,000 mcg PO DAILY [facility] Last Admin: 03/27/17 07:20 Dose: 1,000 mcg Device (Nicotine Mouth Piece*) 1 each INH .CARTRIDGE [facility] Last Admin: 03/12/17 16:10 Dose: 1 each Diphenhydramine HCl (Benadryl Po*) 25 mg PO Q6H PRN PRN Reason: Allergy Symptoms Last Admin: 03/18/17 08:00 Dose: 25 mg Folic Acid (Folvite Tab*) 1 mg PO DAILY [facility] Last Admin: 03/27/17 07:20 Dose: 1 mg Ibuprofen (Motrin Tab*) 800 mg PO Q8H PRN PRN Reason: PAIN Last Admin: 03/27/17 07:19 Dose: 800 mg Multivitamins (Theragran Tab*) 1 tab PO DAILY [facility] Last Admin: 03/27/17 07:20 Dose: 1 tab Nicotine (Nicotine Inhaler*) 10 mg INH Q2H PRN PRN Reason: CRAVING Last Admin: 03/22/17 20:18 Dose: 10 mg Quetiapine Fumarate (Seroquel Tab*) 300 mg PO BEDTIME [facility] Last Admin: 03/26/17 20:03 Dose: 300 mg Thiamine HCl (Vitamin B-1 Tab*) 100 mg PO DAILY [facility] Last Admin: 03/27/17 07:20 Dose: 100 mg - Discharge Plan Discharge Plan: Outpatient Follow Up
[2017-03-27] MEDS: Acetaminophen TAB* 325 MG PO PRN ×2 (12:26→18:13)
[2017-03-27] MEDS: QUEtiapine TAB* 300 MG PO SCH (20:28)
[2017-03-28] MEDS: Thiamine TAB* 100 MG TAB PO SCH (07:23)
[2017-03-28] MEDS: Cyanocobalamin TAB* 500 MCG PO SCH (07:23)
[2017-03-28] MEDS: Folic Acid TAB* 1 MG PO SCH (07:23)
[2017-03-28] MEDS: busPIRone TAB* 30 MG PO SCH ×2 (07:23→19:51)
[2017-03-28] MEDS: Vitamin THERAPEUTIC TAB PO SCH (07:23)
[2017-03-28] MEDS: GRAZOPREVIR PO SCH (07:24)
[2017-03-28] MEDS: Colchicine* 0.6 MG TAB PO SCH ×2 (07:24→19:51)
[2017-03-28] MEDS: ELBASVIR PO SCH (07:24)
[2017-03-28] MEDS: Allopurinol TAB* 100 MG PO SCH (07:24)
--- NOTE | 2017-03-28 11:45 | PN ---
MHU: Group Therapy Note - Service Type Service Type: [id number] Group Psychotherapy - Cognitive Behavioral Group Therapy ( CBT):Patient was attentive and participatory in CBT programming this morning, and remained in good behavioral control. Patient expressed positive insights regarding relevant treatment interventions and goals.
[2017-03-28] MEDS: QUEtiapine TAB* 300 MG PO SCH (19:51)
[2017-03-29] MEDS: Allopurinol TAB* 100 MG PO SCH (08:22)
[2017-03-29] MEDS: Vitamin THERAPEUTIC TAB PO SCH (08:22)
[2017-03-29] MEDS: ELBASVIR PO SCH (08:22)
[2017-03-29] MEDS: Thiamine TAB* 100 MG TAB PO SCH (08:22)
[2017-03-29] MEDS: GRAZOPREVIR PO SCH (08:22)
[2017-03-29] MEDS: Colchicine* 0.6 MG TAB PO SCH ×2 (08:22→20:00)
[2017-03-29] MEDS: Folic Acid TAB* 1 MG PO SCH (08:22)
[2017-03-29] MEDS: busPIRone TAB* 30 MG PO SCH ×2 (08:22→20:00)
[2017-03-29] MEDS: Cyanocobalamin TAB* 500 MCG PO SCH (08:22)
--- NOTE | 2017-03-29 12:42 | PN ---
Subjective - Subjective Service Type: [id number] Hosp care 15 min low complexity Subjective: No changes in presentation. No complaints. Objective - Appearance Appearance: Well Developed/Nourished Dysmorphic Features: No Hygiene: Normal Grooming: Fairly Well Kept - Behavior Psychomotor Activities: Normal Exhibits Abnormal Movement: No - Attitude and Relatedness Attitude and Relatedness: Cooperative Eye Contact: Fair - Speech Quality: Unpressured Latencies: Normal Quantity: Terse - Mood Patient's Decription of Mood: "Good" - Affect Observed Affect: Good Affect Consistent with: Euthymia - Thought Process Patient's Thought Process: Disorganized, Loose Associations Thought Content: No Passive Wish, No Suicidal Planning, No Homicidal Ideation, No Paranoid Ideation - Sensorium Experiencing Hallucinations: No, Sensorium is Clear Type of Hallucinations: Visual: No, Auditory: No, Command: No - Level of Consciousness Level of Consciousness: Alert Orientation: Yes Orientated to Person, No Intact, No Orientated to Time, No Orientated to Place - Impulse Control Impulse Control: Poor - Insight and Judgement Insight and Judgement: Impaired - Group Participation Particating in Group Activities: No - Medication Management Medication Management Adherence: Yes Assessment - Assessment Merits Inpatient Hospitalization: Pending Safe DC Plan Inpatient DSM-IV Dx: Mild Neurocogntive Disorder Clinical Impression: 56 y.o. , AA male with no documented history of mental illness other than unspecified treatment in the correction setting, who was brought to the ER for disorganized thought process and HI, worsening over the last several months. Plan - Plan Treatment Plan: Name: SHAYAN OCAMPO Birthdate: 1960 [id number] The patient has dementia and requires a secured residential setting for his safety. Geriatric Psychiatry Fellow consult ordered. Recommends MRI to help deduce alcohol/traumatic etiology. Continued Medication Management: Start Medication Medications: Current Medications Acetaminophen (Tylenol Tab*) 650 mg PO Q6H PRN PRN Reason: PAIN Last Admin: 03/27/17 18:13 Dose: 650 mg Al Hydrox/Mg Hydrox/Simethicone (Maalox Plus*) 30 ml PO Q4H PRN PRN Reason: INDIGESTION Allopurinol (Zyloprim Tab*) 100 mg PO DAILY [facility] Last Admin: 03/29/17 08:22 Dose: 100 mg Buspirone HCl (Buspar Tab*) 30 mg PO BID [facility] Last Admin: 03/29/17 08:22 Dose: 30 mg Colchicine (Colcrys*) 0.6 mg PO BID [facility] Last Admin: 03/29/17 08:22 Dose: 0.6 mg Cyanocobalamin (Vitamin B12 Tab*) 1,000 mcg PO DAILY [facility] Last Admin: 03/29/17 08:22 Dose: 1,000 mcg Device (Nicotine Mouth Piece*) 1 each INH .CARTRIDGE [facility] Last Admin: 03/12/17 16:10 Dose: 1 each Diphenhydramine HCl (Benadryl Po*) 25 mg PO Q6H PRN PRN Reason: Allergy Symptoms Last Admin: 03/18/17 08:00 Dose: 25 mg Folic Acid (Folvite Tab*) 1 mg PO DAILY [facility] Last Admin: 03/29/17 08:22 Dose: 1 mg Ibuprofen (Motrin Tab*) 800 mg PO Q8H PRN PRN Reason: PAIN Last Admin: 03/27/17 19:20 Dose: 800 mg Lorazepam (Ativan Tab(*)) 2 mg PO ONCE ONE Stop: 03/29/17 12:39 Multivitamins (Theragran Tab*) 1 tab PO DAILY [facility] Last Admin: 03/29/17 08:22 Dose: 1 tab Nicotine (Nicotine Inhaler*) 10 mg INH Q2H PRN PRN Reason: CRAVING Last Admin: 03/22/17 20:18 Dose: 10 mg Quetiapine Fumarate (Seroquel Tab*) 300 mg PO BEDTIME [facility] Last Admin: 03/28/17 19:51 Dose: 300 mg - Discharge Plan Discharge Plan: Inpatient Hospitalization
[2017-03-29] MEDS ORDERED: LORazepam TAB(*) 1 MG PO ONE (13:00)
--- NOTE | 2017-03-29 18:29 | RAD ---
Indication: Altered mental status. Dementia. Comparison: March 11, 2017 CT Technique: [employer] [facility] 1.5 Erica [id number] with GEM suite. MRI brain without contrast. Report: Diffusion series is negative for acute or subacute ischemia. Susceptibility series is negative for stigmata of hemosiderin deposition to indicate previous hemorrhage. Mild prominence of the cerebral sulci. Unremarkable ventricles and basal cisterns. Mild increased T2 FLAIR signal in the periventricular white matter of the cerebral hemispheres. No suspicious intraparenchymal or extra-axial lesions or fluid collections. Preserved major intracranial flow voids. Tortuous normal diameter vertebral artery. Unremarkable orbital contents. No suspicious calvarial or skull base lesion evident. Clear visualized paranasal sinuses and mastoid air spaces. Unremarkable scalp. IMPRESSION: 1. Mild involutional change and stigmata of probable chronic small vessel ischemic disease. 2. No acute intracranial process evident.
[2017-03-29] MEDS: QUEtiapine TAB* 300 MG PO SCH (20:00)
[2017-03-30] MEDS: Vitamin THERAPEUTIC TAB PO SCH (08:13)
[2017-03-30] MEDS: Cyanocobalamin TAB* 500 MCG PO SCH (08:13)
[2017-03-30] MEDS: Folic Acid TAB* 1 MG PO SCH (08:13)
[2017-03-30] MEDS: Colchicine* 0.6 MG TAB PO SCH ×2 (08:13→20:01)
[2017-03-30] MEDS: busPIRone TAB* 30 MG PO SCH ×2 (08:13→20:01)
[2017-03-30] MEDS: Allopurinol TAB* 100 MG PO SCH (08:13)
[2017-03-30] MEDS: GRAZOPREVIR PO SCH (08:14)
[2017-03-30] MEDS: ELBASVIR PO SCH (08:14)
[2017-03-30] MEDS: Ibuprofen TAB* 800 MG PO PRN (20:01)
[2017-03-30] MEDS: QUEtiapine TAB* 300 MG PO SCH (20:02)
[2017-03-31] MEDS: GRAZOPREVIR PO SCH (07:17)
[2017-03-31] MEDS: busPIRone TAB* 30 MG PO SCH ×2 (07:17→20:12)
[2017-03-31] MEDS: ELBASVIR PO SCH (07:17)
[2017-03-31] MEDS: Folic Acid TAB* 1 MG PO SCH (07:17)
[2017-03-31] MEDS: Vitamin THERAPEUTIC TAB PO SCH (07:17)
[2017-03-31] MEDS: Cyanocobalamin TAB* 500 MCG PO SCH (07:18)
[2017-03-31] MEDS: Allopurinol TAB* 100 MG PO SCH (08:09)
[2017-03-31] MEDS: Colchicine* 0.6 MG TAB PO SCH ×2 (08:09→20:12)
[2017-03-31] MEDS: QUEtiapine TAB* 300 MG PO SCH (20:12)
[2017-04-01] MEDS: ELBASVIR PO SCH (08:14)
[2017-04-01] MEDS: Allopurinol TAB* 100 MG PO SCH (08:14)
[2017-04-01] MEDS: GRAZOPREVIR PO SCH (08:14)
[2017-04-01] MEDS: Vitamin THERAPEUTIC TAB PO SCH (08:14)
[2017-04-01] MEDS: busPIRone TAB* 30 MG PO SCH ×2 (08:14→20:11)
[2017-04-01] MEDS: Folic Acid TAB* 1 MG PO SCH (08:14)
[2017-04-01] MEDS: Cyanocobalamin TAB* 500 MCG PO SCH (08:14)
[2017-04-01] MEDS: Colchicine* 0.6 MG TAB PO SCH ×2 (08:14→20:11)
--- NOTE | 2017-04-01 09:47 | CONS ---
CONSULTATION REPORT: DATE OF CONSULT: 03/25/17 CHIEF COMPLAINT: A 56-year-old male with a chief complaint of a loose right big toe. HISTORY OF PRESENT ILLNESS: He is being seen at [facility]. He has a loose nail on the right big toe nail. Denies trauma , but caused by dancing as he reported. REVIEW OF SYSTEMS: Constitutional: No nausea, no vomiting. No fever, no chills. Endocrine: Denies history of hyperglycemia. Hematology: Denies any history of blood clotting or difficulty with clotting blood with procedures. PHYSICAL EXAM: Alert, oriented x3. Vascular Exam: Capillary filling time is 3 seconds bilateral x10. Dorsalis pedis pulses 2/4. Bilateral posterior tibial pulses 2/4 bilateral. Neuro Exam: On the right big toe, there is a loose nail plate, appears tender where it is still attached at the lateral nail fold. There is a mild irritation there; however, there is no active cellulitis or paronychia at this time. DIAGNOSIS: Contusion of the right great toe with injury to the nail plate. PLAN: Advised that the nail can be debrided to ease the discomfort. HE agreed to my recommendations. I debrided the toe tail, tolerated the procedure well. Thank you for the consult. [id number]/[id number] #: [id number] CHATA
--- NOTE | 2017-04-01 14:10 | PN ---
Subjective - Subjective Service Type: 98249 Hosp care 15 min low complexity Subjective: Patient walking the unit on approach. He is bright in affect and engages the interview. Patient reports his mood as"good". Patient though continues to be disorganized and disoriented in TP. He is intrusive in behavior. He has no malicious intent. He did go into a peers room and reportedly asked her for a kiss. He is spontaneous in speech with fair prosody. Patient denies TOLENTINO, CP, Abd pain. He denies problems urinating and denies constipation. Patient is med compliant and reports no noticeable side effects. Patient's sleep and appetite are wnl. He denies SI/HI and AH/VH. Objective - Appearance Appearance: Well Developed/Nourished Dysmorphic Features: No Hygiene: Normal Grooming: Fairly Well Kept - Behavior Psychomotor Activities: Normal Exhibits Abnormal Movement: No - Attitude and Relatedness Attitude and Relatedness: Cooperative Eye Contact: Fair - Speech Quality: Unpressured Latencies: Normal Quantity: Terse - Mood Patient's Decription of Mood: "Good" - Affect Observed Affect: Good Affect Consistent with: Euthymia - Thought Process Patient's Thought Process: Disorganized, Loose Associations Thought Content: No Passive Wish, No Suicidal Planning, No Homicidal Ideation, No Paranoid Ideation - Sensorium Experiencing Hallucinations: No, Sensorium is Clear Type of Hallucinations: Visual: No, Auditory: No, Command: No - Level of Consciousness Level of Consciousness: Alert Orientation: Yes Intact, Yes Orientated to Time, Yes Orientated to Place, Yes Orientated to Person - Impulse Control Impulse Control: Intact - Insight and Judgement Insight and Judgement: Impaired - Group Participation Particating in Group Activities: No - Medication Management Medication Management Adherence: Yes Assessment - Assessment Merits Inpatient Hospitalization: For Immediate Safety, For Stabilization Inpatient DSM-IV Dx: Mild Neurocogntive Disorder Clinical Impression: 56yo , AA male, with no documented history of mental illness other than unspecified treatment in the [facility] setting, who was brought to the ER for disorganized thought process and HI, worsening over the last several months. Plan - Plan Treatment Plan: Name: SHAYAN OCAMPO Birthdate: 1960 [id number] 1. Continue admission for safety and stabilization. 2. Continue current medication regimen. 3. Continue current level of observation. Medications: Current Medications Acetaminophen (Tylenol Tab*) 650 mg PO Q6H PRN PRN Reason: PAIN Last Admin: 03/27/17 18:13 Dose: 650 mg Al Hydrox/Mg Hydrox/Simethicone (Maalox Plus*) 30 ml PO Q4H PRN PRN Reason: INDIGESTION Allopurinol (Zyloprim Tab*) 100 mg PO DAILY [facility] Last Admin: 04/01/17 08:14 Dose: 100 mg Buspirone HCl (Buspar Tab*) 30 mg PO BID [facility] Last Admin: 04/01/17 08:14 Dose: 30 mg Colchicine (Colcrys*) 0.6 mg PO BID [facility] Last Admin: 04/01/17 08:14 Dose: 0.6 mg Cyanocobalamin (Vitamin B12 Tab*) 1,000 mcg PO DAILY [facility] Last Admin: 04/01/17 08:14 Dose: 1,000 mcg Device (Nicotine Mouth Piece*) 1 each INH .CARTRIDGE [facility] Last Admin: 03/12/17 16:10 Dose: 1 each Diphenhydramine HCl (Benadryl Po*) 25 mg PO Q6H PRN PRN Reason: Allergy Symptoms Last Admin: 03/18/17 08:00 Dose: 25 mg Folic Acid (Folvite Tab*) 1 mg PO DAILY [facility] Last Admin: 04/01/17 08:14 Dose: 1 mg Ibuprofen (Motrin Tab*) 800 mg PO Q8H PRN PRN Reason: PAIN Last Admin: 03/30/17 20:01 Dose: 800 mg Multivitamins (Theragran Tab*) 1 tab PO DAILY [facility] Last Admin: 04/01/17 08:14 Dose: 1 tab Nicotine (Nicotine Inhaler*) 10 mg INH Q2H PRN PRN Reason: CRAVING Last Admin: 03/22/17 20:18 Dose: 10 mg Quetiapine Fumarate (Seroquel Tab*) 300 mg PO BEDTIME [facility] Last Admin: 03/31/17 20:12 Dose: 300 mg - Discharge Plan Discharge Plan: Consider Longer Term Tx Outpatient Program: Private Clinician(s)
[2017-04-01] MEDS: QUEtiapine TAB* 300 MG PO SCH (20:11)
[2017-04-02] MEDS: Cyanocobalamin TAB* 500 MCG PO SCH (08:15)
[2017-04-02] MEDS: Vitamin THERAPEUTIC TAB PO SCH (08:15)
[2017-04-02] MEDS: GRAZOPREVIR PO SCH (08:15)
[2017-04-02] MEDS: ELBASVIR PO SCH (08:15)
[2017-04-02] MEDS: Colchicine* 0.6 MG TAB PO SCH ×2 (08:16→20:02)
[2017-04-02] MEDS: Allopurinol TAB* 100 MG PO SCH (08:16)
[2017-04-02] MEDS: Folic Acid TAB* 1 MG PO SCH (08:16)
[2017-04-02] MEDS: busPIRone TAB* 30 MG PO SCH ×2 (08:16→20:02)
[2017-04-02] MEDS: Nicotine Inhaler* 10 MG AMP INH PRN (15:59)
[2017-04-02] MEDS: QUEtiapine TAB* 300 MG PO SCH (20:02)
[2017-04-03] MEDS: busPIRone TAB* 30 MG PO SCH ×2 (07:40→20:06)
[2017-04-03] MEDS: Cyanocobalamin TAB* 500 MCG PO SCH (07:41)
[2017-04-03] MEDS: Allopurinol TAB* 100 MG PO SCH (07:41)
[2017-04-03] MEDS: Vitamin THERAPEUTIC TAB PO SCH (07:41)
[2017-04-03] MEDS: Folic Acid TAB* 1 MG PO SCH (07:41)
[2017-04-03] MEDS: Colchicine* 0.6 MG TAB PO SCH ×2 (07:41→20:06)
[2017-04-03] MEDS: GRAZOPREVIR PO SCH (07:45)
[2017-04-03] MEDS: ELBASVIR PO SCH (07:45)
--- NOTE | 2017-04-03 10:45 | PN ---
Subjective - Subjective Service Type: 20672 Hosp care 15 min low complexity Subjective: The patient remains good-natured and denies any acute complaints. He tolerated his MRI well and this showed only mild small-vessel changes in the periventricular white matter, which are likely incidental. Objective - Appearance Appearance: Well Developed/Nourished Dysmorphic Features: No Hygiene: Normal Grooming: Well Kept - Behavior Psychomotor Activities: Normal Exhibits Abnormal Movement: No - Attitude and Relatedness Attitude and Relatedness: Cooperative Eye Contact: Fair - Speech Quality: Unpressured Latencies: Normal Quantity: Terse - Mood Patient's Decription of Mood: "Good" - Affect Observed Affect: Good Affect Consistent with: Euthymia - Thought Process Patient's Thought Process: Coherent Thought Content: No Passive Wish, No Suicidal Planning, No Homicidal Ideation, No Paranoid Ideation - Sensorium Experiencing Hallucinations: No, Sensorium is Clear Type of Hallucinations: Visual: No, Auditory: No, Command: No - Level of Consciousness Level of Consciousness: Alert Orientation: Yes Orientated to Person, No Intact, No Orientated to Time, No Orientated to Place - Impulse Control Impulse Control: Poor - Insight and Judgement Insight and Judgement: Impaired - Group Participation Particating in Group Activities: No - Medication Management Medication Management Adherence: Yes Assessment - Assessment Merits Inpatient Hospitalization: Pending Safe DC Plan Inpatient DSM-IV Dx: Mild Neurocogntive Disorder Clinical Impression: 56 y.o. , AA male with no documented history of mental illness other than unspecified treatment in the [facility] setting, who was brought to the ER for disorganized thought process and HI, worsening over the last several months. Plan - Plan Treatment Plan: Name: SHAYAN OCAMPO Birthdate: 1960 [id number] The patient has dementia and requires a secured residential setting for his safety. MRI of brain is essentially negative for significant findings. Await SNF placement. Continued Medication Management: Start Medication Medications: Current Medications Acetaminophen (Tylenol Tab*) 650 mg PO Q6H PRN PRN Reason: PAIN Last Admin: 03/27/17 18:13 Dose: 650 mg Al Hydrox/Mg Hydrox/Simethicone (Maalox Plus*) 30 ml PO Q4H PRN PRN Reason: INDIGESTION Allopurinol (Zyloprim Tab*) 100 mg PO DAILY [facility] Last Admin: 04/03/17 07:41 Dose: 100 mg Buspirone HCl (Buspar Tab*) 30 mg PO BID [facility] Last Admin: 04/03/17 07:40 Dose: 30 mg Colchicine (Colcrys*) 0.6 mg PO BID [facility] Last Admin: 04/03/17 07:41 Dose: 0.6 mg Cyanocobalamin (Vitamin B12 Tab*) 1,000 mcg PO DAILY [facility] Last Admin: 04/03/17 07:41 Dose: 1,000 mcg Device (Nicotine Mouth Piece*) 1 each INH .CARTRIDGE [facility] Last Admin: 03/12/17 16:10 Dose: 1 each Diphenhydramine HCl (Benadryl Po*) 25 mg PO Q6H PRN PRN Reason: Allergy Symptoms Last Admin: 03/18/17 08:00 Dose: 25 mg Folic Acid (Folvite Tab*) 1 mg PO DAILY [facility] Last Admin: 04/03/17 07:41 Dose: 1 mg Ibuprofen (Motrin Tab*) 800 mg PO Q8H PRN PRN Reason: PAIN Last Admin: 03/30/17 20:01 Dose: 800 mg Multivitamins (Theragran Tab*) 1 tab PO DAILY [facility] Last Admin: 04/03/17 07:41 Dose: 1 tab Nicotine (Nicotine Inhaler*) 10 mg INH Q2H PRN PRN Reason: CRAVING Last Admin: 04/02/17 15:59 Dose: 10 mg Quetiapine Fumarate (Seroquel Tab*) 300 mg PO BEDTIME [facility] Last Admin: 04/02/17 20:02 Dose: 300 mg - Discharge Plan Discharge Plan: Outpatient Follow Up
--- NOTE | 2017-04-03 11:08 | PN ---
MHU: Group Therapy Note - Service Type Service Type: [id number] Group Psychotherapy - Cognitive Behavioral Group Therapy ( CBT):Patient was attentive and participatory in CBT programming this morning, and remained in good behavioral control. Patient expressed positive insights regarding relevant treatment interventions and goals.
[2017-04-03] MEDS: QUEtiapine TAB* 300 MG PO SCH (20:07)
[2017-04-03] MEDS: Acetaminophen TAB* 325 MG PO PRN (20:08)
[2017-04-04] MEDS: Vitamin THERAPEUTIC TAB PO SCH (07:41)
[2017-04-04] MEDS: GRAZOPREVIR PO SCH (07:41)
[2017-04-04] MEDS: ELBASVIR PO SCH (07:41)
[2017-04-04] MEDS: Allopurinol TAB* 100 MG PO SCH (07:41)
[2017-04-04] MEDS: Colchicine* 0.6 MG TAB PO SCH ×2 (07:42→19:57)
[2017-04-04] MEDS: busPIRone TAB* 30 MG PO SCH ×2 (07:42→19:57)
[2017-04-04] MEDS: Cyanocobalamin TAB* 500 MCG PO SCH (07:42)
[2017-04-04] MEDS: Folic Acid TAB* 1 MG PO SCH (07:42)
[2017-04-04] MEDS: diPHENhydraMINE PO* 25 MG PO PRN (14:21)
[2017-04-04] MEDS: Ibuprofen TAB* 800 MG PO PRN (14:21)
[2017-04-04] MEDS: QUEtiapine TAB* 300 MG PO SCH (19:58)
[2017-04-04] MEDS: Acetaminophen TAB* 325 MG PO PRN (19:58)
[2017-04-05] MEDS: GRAZOPREVIR PO SCH (07:28)
[2017-04-05] MEDS: ELBASVIR PO SCH (07:28)
[2017-04-05] MEDS: busPIRone TAB* 30 MG PO SCH ×2 (07:29→20:10)
[2017-04-05] MEDS: Allopurinol TAB* 100 MG PO SCH (07:29)
[2017-04-05] MEDS: Folic Acid TAB* 1 MG PO SCH (07:29)
[2017-04-05] MEDS: Colchicine* 0.6 MG TAB PO SCH ×2 (07:29→20:10)
[2017-04-05] MEDS: Vitamin THERAPEUTIC TAB PO SCH (07:29)
[2017-04-05] MEDS: Cyanocobalamin TAB* 500 MCG PO SCH (07:29)
[2017-04-05] MEDS: Ibuprofen TAB* 800 MG PO PRN (10:47)
--- NOTE | 2017-04-05 10:50 | PN ---
Subjective - Subjective Service Type: 25169 Hosp care 15 min low complexity Subjective: The patient is calm and cooperative and there are no changes in his clinical presentation. He has no idea where he is or to where he will be going. He denies SI or HI. Objective - Appearance Appearance: Well Developed/Nourished Dysmorphic Features: No Hygiene: Normal Grooming: Fairly Well Kept - Behavior Psychomotor Activities: Normal Exhibits Abnormal Movement: No - Attitude and Relatedness Attitude and Relatedness: Cooperative Eye Contact: Fair - Speech Quality: Unpressured Latencies: Normal Quantity: Terse - Mood Patient's Decription of Mood: "Good" - Affect Observed Affect: Good Affect Consistent with: Euthymia - Thought Process Patient's Thought Process: Disorganized, Loose Associations Thought Content: No Passive Wish, No Suicidal Planning, No Homicidal Ideation, No Paranoid Ideation - Sensorium Experiencing Hallucinations: No, Sensorium is Clear Type of Hallucinations: Visual: No, Auditory: No, Command: No - Level of Consciousness Level of Consciousness: Alert Orientation: Yes Orientated to Person, No Intact, No Orientated to Time, No Orientated to Place - Impulse Control Impulse Control: Poor - Insight and Judgement Insight and Judgement: Impaired - Group Participation Particating in Group Activities: No - Medication Management Medication Management Adherence: Yes Assessment - Assessment Merits Inpatient Hospitalization: Pending Safe DC Plan Inpatient DSM-IV Dx: Mild Neurocogntive Disorder Clinical Impression: 56 y.o. , AA male with no documented history of mental illness other than unspecified treatment in the [facility] setting, who was brought to the ER for disorganized thought process and HI, worsening over the last several months. Plan - Plan Treatment Plan: Name: SHAYAN OCAMPO Birthdate: 1960 [id number] The patient has dementia and requires a secured residential setting for his safety. MRI of brain is essentially negative for significant findings. Await SNF placement. Continued Medication Management: Start Medication Medications: Current Medications Acetaminophen (Tylenol Tab*) 650 mg PO Q6H PRN PRN Reason: PAIN Last Admin: 04/04/17 19:58 Dose: 650 mg Al Hydrox/Mg Hydrox/Simethicone (Maalox Plus*) 30 ml PO Q4H PRN PRN Reason: INDIGESTION Allopurinol (Zyloprim Tab*) 100 mg PO DAILY [facility] Last Admin: 04/05/17 07:29 Dose: 100 mg Buspirone HCl (Buspar Tab*) 30 mg PO BID [facility] Last Admin: 04/05/17 07:29 Dose: 30 mg Colchicine (Colcrys*) 0.6 mg PO BID [facility] Last Admin: 04/05/17 07:29 Dose: 0.6 mg Cyanocobalamin (Vitamin B12 Tab*) 1,000 mcg PO DAILY [facility] Last Admin: 04/05/17 07:29 Dose: 1,000 mcg Device (Nicotine Mouth Piece*) 1 each INH .CARTRIDGE [facility] Last Admin: 03/12/17 16:10 Dose: 1 each Diphenhydramine HCl (Benadryl Po*) 25 mg PO Q6H PRN PRN Reason: Allergy Symptoms Last Admin: 04/04/17 14:21 Dose: 25 mg Elbasvir/Grazoprevir (Zepatier 50/100(Nf)) 1 tab PO DAILY [facility] Last Admin: 04/05/17 07:28 Dose: 1 tab Folic Acid (Folvite Tab*) 1 mg PO DAILY [facility] Last Admin: 04/05/17 07:29 Dose: 1 mg Ibuprofen (Motrin Tab*) 800 mg PO Q8H PRN PRN Reason: PAIN Last Admin: 04/05/17 10:47 Dose: 800 mg Multivitamins (Theragran Tab*) 1 tab PO DAILY [facility] Last Admin: 04/05/17 07:29 Dose: 1 tab Nicotine (Nicotine Inhaler*) 10 mg INH Q2H PRN PRN Reason: CRAVING Last Admin: 04/02/17 15:59 Dose: 10 mg Quetiapine Fumarate (Seroquel Tab*) 300 mg PO BEDTIME [facility] Last Admin: 04/04/17 19:58 Dose: 300 mg - Discharge Plan Discharge Plan: Outpatient Follow Up
[2017-04-05] MEDS: QUEtiapine TAB* 300 MG PO SCH (20:10)
[2017-04-06] MEDS: Vitamin THERAPEUTIC TAB PO SCH (07:55)
[2017-04-06] MEDS: Folic Acid TAB* 1 MG PO SCH (07:55)
[2017-04-06] MEDS: Colchicine* 0.6 MG TAB PO SCH ×2 (07:55→20:01)
[2017-04-06] MEDS: busPIRone TAB* 30 MG PO SCH ×2 (07:55→20:01)
[2017-04-06] MEDS: Allopurinol TAB* 100 MG PO SCH (07:55)
[2017-04-06] MEDS: ELBASVIR PO SCH (07:55)
[2017-04-06] MEDS: GRAZOPREVIR PO SCH (07:55)
[2017-04-06] MEDS: Cyanocobalamin TAB* 500 MCG PO SCH (07:55)
[2017-04-06] MEDS: QUEtiapine TAB* 300 MG PO SCH (20:01)
[2017-04-07] MEDS: GRAZOPREVIR PO SCH (07:37)
[2017-04-07] MEDS: busPIRone TAB* 30 MG PO SCH ×2 (07:37→19:57)
[2017-04-07] MEDS: Cyanocobalamin TAB* 500 MCG PO SCH (07:37)
[2017-04-07] MEDS: Colchicine* 0.6 MG TAB PO SCH ×2 (07:37→19:57)
[2017-04-07] MEDS: Allopurinol TAB* 100 MG PO SCH (07:37)
[2017-04-07] MEDS: ELBASVIR PO SCH (07:37)
[2017-04-07] MEDS: Vitamin THERAPEUTIC TAB PO SCH (07:37)
[2017-04-07] MEDS: Folic Acid TAB* 1 MG PO SCH (07:37)
[2017-04-07] MEDS: Acetaminophen TAB* 325 MG PO PRN (19:57)
[2017-04-07] MEDS: QUEtiapine TAB* 300 MG PO SCH (19:57)
[2017-04-08] MEDS: Vitamin THERAPEUTIC TAB PO SCH (07:53)
[2017-04-08] MEDS: busPIRone TAB* 30 MG PO SCH ×2 (07:53→20:00)
[2017-04-08] MEDS: Folic Acid TAB* 1 MG PO SCH (07:53)
[2017-04-08] MEDS: Cyanocobalamin TAB* 500 MCG PO SCH (07:53)
[2017-04-08] MEDS: Colchicine* 0.6 MG TAB PO SCH ×2 (07:54→20:00)
[2017-04-08] MEDS: ELBASVIR PO SCH (07:55)
[2017-04-08] MEDS: GRAZOPREVIR PO SCH (07:55)
[2017-04-08] MEDS: Allopurinol TAB* 100 MG PO SCH (10:32)
--- NOTE | 2017-04-08 12:32 | PN ---
Subjective - Subjective Service Type: 30985 Hosp care 15 min low complexity Subjective: There are no new clinical issues with Shayan. He remains pleasantly confused, occasionally entering peers' rooms or touching them lightly on the head or shoulders. There have been no episodes of agitation or violence at any point of this hospitalization. Objective - Appearance Appearance: Well Developed/Nourished Dysmorphic Features: No Hygiene: Normal Grooming: Fairly Well Kept - Behavior Psychomotor Activities: Normal Exhibits Abnormal Movement: No - Attitude and Relatedness Attitude and Relatedness: Cooperative Eye Contact: Fair - Speech Quality: Unpressured Latencies: Normal Quantity: Terse - Mood Patient's Decription of Mood: "Good" - Affect Observed Affect: Fair Affect Consistent with: Euthymia - Thought Process Patient's Thought Process: Disorganized, Loose Associations Thought Content: No Passive Wish, No Suicidal Planning, No Homicidal Ideation, No Paranoid Ideation - Sensorium Experiencing Hallucinations: No, Sensorium is Clear Type of Hallucinations: Visual: No, Auditory: No, Command: No - Level of Consciousness Level of Consciousness: Alert Orientation: Yes Orientated to Person, No Intact, No Orientated to Time, No Orientated to Place - Impulse Control Impulse Control: Poor - Insight and Judgement Insight and Judgement: Impaired - Group Participation Particating in Group Activities: No - Medication Management Medication Management Adherence: Yes Assessment - Assessment Merits Inpatient Hospitalization: Pending Safe DC Plan Inpatient DSM-IV Dx: Mild Neurocogntive Disorder Clinical Impression: 56 y.o. , AA male with no documented history of mental illness other than unspecified treatment in the residential setting, who was brought to the ER for disorganized thought process and HI, worsening over the last several months. Plan - Plan Treatment Plan: Name: SHAYAN OCAMPO Birthdate: 1960 [id number] The patient has dementia and requires a secured residential setting for his safety. MRI of brain is essentially negative for significant findings. Await SNF placement. Medications: Current Medications Acetaminophen (Tylenol Tab*) 650 mg PO Q6H PRN PRN Reason: PAIN Last Admin: 04/07/17 19:57 Dose: 650 mg Al Hydrox/Mg Hydrox/Simethicone (Maalox Plus*) 30 ml PO Q4H PRN PRN Reason: INDIGESTION Allopurinol (Zyloprim Tab*) 100 mg PO DAILY [facility] Last Admin: 04/08/17 10:32 Dose: 100 mg Buspirone HCl (Buspar Tab*) 30 mg PO BID [facility] Last Admin: 04/08/17 07:53 Dose: 30 mg Colchicine (Colcrys*) 0.6 mg PO BID [facility] Last Admin: 04/08/17 07:54 Dose: 0.6 mg Cyanocobalamin (Vitamin B12 Tab*) 1,000 mcg PO DAILY [facility] Last Admin: 04/08/17 07:53 Dose: 1,000 mcg Device (Nicotine Mouth Piece*) 1 each INH .[facility]TRID[facility] Last Admin: 03/12/17 16:10 Dose: 1 each Diphenhydramine HCl (Benadryl Po*) 25 mg PO Q6H PRN PRN Reason: Allergy Symptoms Last Admin: 04/04/17 14:21 Dose: 25 mg Elbasvir/Grazoprevir (Zepatier 50/100(Nf)) 1 tab PO DAILY [facility] Last Admin: 04/08/17 07:55 Dose: 1 tab Folic Acid (Folvite Tab*) 1 mg PO DAILY [facility] Last Admin: 04/08/17 07:53 Dose: 1 mg Ibuprofen (Motrin Tab*) 800 mg PO Q8H PRN PRN Reason: PAIN Last Admin: 04/05/17 10:47 Dose: 800 mg Multivitamins (Theragran Tab*) 1 tab PO DAILY [facility] Last Admin: 04/08/17 07:53 Dose: 1 tab Nicotine (Nicotine Inhaler*) 10 mg INH Q2H PRN PRN Reason: CRAVING Last Admin: 04/02/17 15:59 Dose: 10 mg Quetiapine Fumarate (Seroquel Tab*) 300 mg PO BEDTIME [facility] Last Admin: 04/07/17 19:57 Dose: 300 mg
[2017-04-08] MEDS: QUEtiapine TAB* 300 MG PO SCH (20:00)
[2017-04-09] MEDS: ELBASVIR PO SCH (09:05)
[2017-04-09] MEDS: GRAZOPREVIR PO SCH (09:05)
[2017-04-09] MEDS: Cyanocobalamin TAB* 500 MCG PO SCH (09:06)
[2017-04-09] MEDS: Allopurinol TAB* 100 MG PO SCH (09:06)
[2017-04-09] MEDS: Vitamin THERAPEUTIC TAB PO SCH (09:06)
[2017-04-09] MEDS: busPIRone TAB* 30 MG PO SCH ×2 (09:06→20:04)
[2017-04-09] MEDS: Colchicine* 0.6 MG TAB PO SCH ×2 (09:06→20:04)
[2017-04-09] MEDS: Folic Acid TAB* 1 MG PO SCH (09:07)
[2017-04-09] MEDS: QUEtiapine TAB* 300 MG PO SCH (20:04)
[2017-04-10] MEDS: Ibuprofen TAB* 800 MG PO PRN (07:38)
[2017-04-10] MEDS: Colchicine* 0.6 MG TAB PO SCH ×2 (07:53→20:10)
[2017-04-10] MEDS: Vitamin THERAPEUTIC TAB PO SCH (07:53)
[2017-04-10] MEDS: GRAZOPREVIR PO SCH (07:53)
[2017-04-10] MEDS: Folic Acid TAB* 1 MG PO SCH (07:53)
[2017-04-10] MEDS: ELBASVIR PO SCH (07:53)
[2017-04-10] MEDS: busPIRone TAB* 30 MG PO SCH ×2 (07:54→20:10)
[2017-04-10] MEDS: Cyanocobalamin TAB* 500 MCG PO SCH (07:54)
[2017-04-10] MEDS: Allopurinol TAB* 100 MG PO SCH (07:54)
[2017-04-10] MEDS: Acetaminophen TAB* 325 MG PO PRN (08:20)
--- NOTE | 2017-04-10 11:18 | PN ---
Subjective - Subjective Service Type: [id number] Hosp care 15 min low complexity Subjective: Patient seems slightly irritable and staff notes that he only slept 3 hours last night. He still has no insight into his condition or current situation. Family continues to refuse to accept him home. No behavioral issues noted. Objective - Appearance Appearance: Well Developed/Nourished Dysmorphic Features: No Hygiene: Normal Grooming: Fairly Well Kept - Behavior Psychomotor Activities: Normal Exhibits Abnormal Movement: No - Attitude and Relatedness Attitude and Relatedness: Cooperative Eye Contact: Fair - Speech Quality: Unpressured Latencies: Normal Quantity: Terse - Mood Patient's Decription of Mood: "Okay" - Affect Observed Affect: Fair Affect Consistent with: Euthymia - Thought Process Patient's Thought Process: Disorganized, Loose Associations Thought Content: No Passive Wish, No Suicidal Planning, No Homicidal Ideation, No Paranoid Ideation - Sensorium Experiencing Hallucinations: No, Sensorium is Clear Type of Hallucinations: Visual: No, Auditory: No, Command: No - Level of Consciousness Level of Consciousness: Alert Orientation: Yes Orientated to Person, No Intact, No Orientated to Time, No Orientated to Place - Impulse Control Impulse Control: Poor - Insight and Judgement Insight and Judgement: Impaired - Group Participation Particating in Group Activities: No - Medication Management Medication Management Adherence: Yes Assessment - Assessment Merits Inpatient Hospitalization: Pending Safe DC Plan Inpatient DSM-IV Dx: Mild Neurocogntive Disorder Clinical Impression: 56 y.o. , AA male with no documented history of mental illness other than unspecified treatment in the [place] [facility] setting, who was brought to the ER for disorganized thought process and HI, worsening over the last several months. Plan - Plan Treatment Plan: Name: SHAYAN OCAMPO Birthdate: 1960 [id number] The patient has dementia and requires a secured residential setting for his safety. Will increase quetiapine to 400mg PO qhs for mild irritability and insomnia. MRI of brain is essentially negative for significant findings. Await SNF or family care placement. Continued Medication Management: Start Medication Medications: Current Medications Acetaminophen (Tylenol Tab*) 650 mg PO Q6H PRN PRN Reason: PAIN Last Admin: 04/10/17 08:20 Dose: 650 mg Al Hydrox/Mg Hydrox/Simethicone (Maalox Plus*) 30 ml PO Q4H PRN PRN Reason: INDIGESTION Allopurinol (Zyloprim Tab*) 100 mg PO DAILY [facility] Last Admin: 04/10/17 07:54 Dose: 100 mg Buspirone HCl (Buspar Tab*) 30 mg PO BID [facility] Last Admin: 04/10/17 07:54 Dose: 30 mg Colchicine (Colcrys*) 0.6 mg PO BID [facility] Last Admin: 04/10/17 07:53 Dose: 0.6 mg Cyanocobalamin (Vitamin B12 Tab*) 1,000 mcg PO DAILY [facility] Last Admin: 04/10/17 07:54 Dose: 1,000 mcg Device (Nicotine Mouth Piece*) 1 each INH .[facility] Last Admin: 03/12/17 16:10 Dose: 1 each Diphenhydramine HCl (Benadryl Po*) 25 mg PO Q6H PRN PRN Reason: Allergy Symptoms Last Admin: 04/04/17 14:21 Dose: 25 mg Elbasvir/Grazoprevir (Zepatier 50/100(Nf)) 1 tab PO DAILY [facility] Last Admin: 04/10/17 07:53 Dose: 1 tab Folic Acid (Folvite Tab*) 1 mg PO DAILY [facility] Last Admin: 04/10/17 07:53 Dose: 1 mg Ibuprofen (Motrin Tab*) 800 mg PO Q8H PRN PRN Reason: PAIN Last Admin: 04/10/17 07:38 Dose: 800 mg Multivitamins (Theragran Tab*) 1 tab PO DAILY [facility] Last Admin: 04/10/17 07:53 Dose: 1 tab Nicotine (Nicotine Inhaler*) 10 mg INH Q2H PRN PRN Reason: CRAVING Last Admin: 04/02/17 15:59 Dose: 10 mg Quetiapine Fumarate (Seroquel Tab*) 300 mg PO BEDTIME [facility] Last Admin: 04/09/17 20:04 Dose: 300 mg - Discharge Plan Discharge Plan: Outpatient Follow Up
[2017-04-10] MEDS: QUEtiapine XR TAB* 200 MG PO SCH (20:10)
[2017-04-11] MEDS: GRAZOPREVIR PO SCH (08:31)
[2017-04-11] MEDS: busPIRone TAB* 30 MG PO SCH ×2 (08:31→20:03)
[2017-04-11] MEDS: ELBASVIR PO SCH (08:31)
[2017-04-11] MEDS: Colchicine* 0.6 MG TAB PO SCH ×2 (08:31→20:03)
[2017-04-11] MEDS: Allopurinol TAB* 100 MG PO SCH (08:31)
[2017-04-11] MEDS: Folic Acid TAB* 1 MG PO SCH (08:31)
[2017-04-11] MEDS: Vitamin THERAPEUTIC TAB PO SCH (08:31)
[2017-04-11] MEDS: Cyanocobalamin TAB* 500 MCG PO SCH (08:32)
[2017-04-11] MEDS: QUEtiapine XR TAB* 200 MG PO SCH (20:03)
[2017-04-12] MEDS: Cyanocobalamin TAB* 500 MCG PO SCH (08:16)
[2017-04-12] MEDS: Vitamin THERAPEUTIC TAB PO SCH (08:16)
[2017-04-12] MEDS: GRAZOPREVIR PO SCH (08:16)
[2017-04-12] MEDS: Folic Acid TAB* 1 MG PO SCH (08:16)
[2017-04-12] MEDS: ELBASVIR PO SCH (08:16)
[2017-04-12] MEDS: Allopurinol TAB* 100 MG PO SCH (08:16)
[2017-04-12] MEDS: busPIRone TAB* 30 MG PO SCH ×2 (08:16→20:45)
[2017-04-12] MEDS: Colchicine* 0.6 MG TAB PO SCH ×2 (08:16→20:44)
[2017-04-12] MEDS: Ibuprofen TAB* 800 MG PO PRN (08:17)
--- NOTE | 2017-04-12 13:11 | PN ---
Subjective - Subjective Service Type: 58788 Hosp care 15 min low complexity Subjective: Patient has been in good behavioral control. Nothing new to report. No new complaints. Objective - Appearance Appearance: Well Developed/Nourished Dysmorphic Features: No Hygiene: Normal Grooming: Fairly Well Kept - Behavior Psychomotor Activities: Normal Exhibits Abnormal Movement: No - Attitude and Relatedness Attitude and Relatedness: Cooperative Eye Contact: Fair - Speech Quality: Unpressured Latencies: Normal Quantity: Terse - Mood Patient's Decription of Mood: "Good" - Affect Observed Affect: Good Affect Consistent with: Euthymia - Thought Process Patient's Thought Process: Disorganized, Loose Associations Thought Content: No Passive Wish, No Suicidal Planning, No Homicidal Ideation, No Paranoid Ideation - Sensorium Experiencing Hallucinations: No, Sensorium is Clear Type of Hallucinations: Visual: No, Auditory: No, Command: No - Level of Consciousness Level of Consciousness: Alert Orientation: Yes Orientated to Person, No Intact, No Orientated to Time, No Orientated to Place - Impulse Control Impulse Control: Poor - Insight and Judgement Insight and Judgement: Impaired - Group Participation Particating in Group Activities: No - Medication Management Medication Management Adherence: Yes Assessment - Assessment Merits Inpatient Hospitalization: Pending Safe DC Plan Inpatient DSM-IV Dx: Mild Neurocogntive Disorder Clinical Impression: 56 y.o. , AA male with no documented history of mental illness other than unspecified treatment in the [facility] setting, who was brought to the ER for disorganized thought process and HI, worsening over the last several months. Plan - Plan Treatment Plan: Name: SHAYAN OCAMPO Birthdate: 1960 [id number] The patient has dementia and requires a secured residential setting for his safety. MRI of brain is essentially negative for significant findings. Await SNF or family care placement. Continued Medication Management: Start Medication Medications: Current Medications Acetaminophen (Tylenol Tab*) 650 mg PO Q6H PRN PRN Reason: PAIN Last Admin: 04/10/17 08:20 Dose: 650 mg Al Hydrox/Mg Hydrox/Simethicone (Maalox Plus*) 30 ml PO Q4H PRN PRN Reason: INDIGESTION Allopurinol (Zyloprim Tab*) 100 mg PO DAILY [facility] Last Admin: 04/12/17 08:16 Dose: 100 mg Buspirone HCl (Buspar Tab*) 30 mg PO BID [facility] Last Admin: 04/12/17 08:16 Dose: 30 mg Colchicine (Colcrys*) 0.6 mg PO BID [facility] Last Admin: 04/12/17 08:16 Dose: 0.6 mg Cyanocobalamin (Vitamin B12 Tab*) 1,000 mcg PO DAILY [facility] Last Admin: 04/12/17 08:16 Dose: 1,000 mcg Device (Nicotine Mouth Piece*) 1 each INH .[facility] Last Admin: 03/12/17 16:10 Dose: 1 each Diphenhydramine HCl (Benadryl Po*) 25 mg PO Q6H PRN PRN Reason: Allergy Symptoms Last Admin: 04/04/17 14:21 Dose: 25 mg Elbasvir/Grazoprevir (Zepatier 50/100(Nf)) 1 tab PO DAILY [facility] Last Admin: 04/12/17 08:16 Dose: 1 tab Folic Acid (Folvite Tab*) 1 mg PO DAILY [facility] Last Admin: 04/12/17 08:16 Dose: 1 mg Ibuprofen (Motrin Tab*) 800 mg PO Q8H PRN PRN Reason: PAIN Last Admin: 04/12/17 08:17 Dose: 800 mg Multivitamins (Theragran Tab*) 1 tab PO DAILY [facility] Last Admin: 04/12/17 08:16 Dose: 1 tab Nicotine (Nicotine Inhaler*) 10 mg INH Q2H PRN PRN Reason: CRAVING Last Admin: 04/02/17 15:59 Dose: 10 mg Quetiapine Fumarate (Seroquel Xr Tab*) 400 mg PO BEDTIME [facility] Last Admin: 04/11/17 20:03 Dose: 400 mg - Discharge Plan Discharge Plan: Outpatient Follow Up
[2017-04-12] MEDS: QUEtiapine XR TAB* 200 MG PO SCH (20:44)
[2017-04-13] MEDS: Cyanocobalamin TAB* 500 MCG PO SCH (08:25)
[2017-04-13] MEDS: busPIRone TAB* 30 MG PO SCH ×2 (08:25→19:58)
[2017-04-13] MEDS: Colchicine* 0.6 MG TAB PO SCH ×2 (08:25→19:58)
[2017-04-13] MEDS: GRAZOPREVIR PO SCH (08:26)
[2017-04-13] MEDS: Allopurinol TAB* 100 MG PO SCH (08:26)
[2017-04-13] MEDS: Folic Acid TAB* 1 MG PO SCH (08:26)
[2017-04-13] MEDS: ELBASVIR PO SCH (08:26)
[2017-04-13] MEDS: Vitamin THERAPEUTIC TAB PO SCH (08:26)
[2017-04-13] MEDS: QUEtiapine XR TAB* 200 MG PO SCH (19:57)
[2017-04-14] MEDS: Vitamin THERAPEUTIC TAB PO SCH (08:06)
[2017-04-14] MEDS: Cyanocobalamin TAB* 500 MCG PO SCH (08:06)
[2017-04-14] MEDS: Colchicine* 0.6 MG TAB PO SCH ×2 (08:06→20:02)
[2017-04-14] MEDS: busPIRone TAB* 30 MG PO SCH ×2 (08:06→20:02)
[2017-04-14] MEDS: ELBASVIR PO SCH (08:07)
[2017-04-14] MEDS: Folic Acid TAB* 1 MG PO SCH (08:07)
[2017-04-14] MEDS: Allopurinol TAB* 100 MG PO SCH (08:07)
[2017-04-14] MEDS: GRAZOPREVIR PO SCH (08:07)
[2017-04-14] MEDS: QUEtiapine XR TAB* 200 MG PO SCH (20:02)
[2017-04-15] MEDS: Allopurinol TAB* 100 MG PO SCH (08:37)
[2017-04-15] MEDS: GRAZOPREVIR PO SCH (08:38)
[2017-04-15] MEDS: ELBASVIR PO SCH (08:38)
[2017-04-15] MEDS: Cyanocobalamin TAB* 500 MCG PO SCH (08:38)
[2017-04-15] MEDS: busPIRone TAB* 30 MG PO SCH ×2 (08:38→20:03)
[2017-04-15] MEDS: Colchicine* 0.6 MG TAB PO SCH ×2 (08:38→20:03)
[2017-04-15] MEDS: Folic Acid TAB* 1 MG PO SCH (08:39)
[2017-04-15] MEDS: Vitamin THERAPEUTIC TAB PO SCH (08:39)
--- NOTE | 2017-04-15 12:24 | PN ---
Subjective - Subjective Service Type: 75313 Hosp care 15 min low complexity Subjective: No changes in presentation. Patient cleared to go outside with staff on fresh air breaks. No behavioral disturbances noted. Objective - Appearance Appearance: Well Developed/Nourished Dysmorphic Features: No Hygiene: Normal Grooming: Fairly Well Kept - Behavior Psychomotor Activities: Normal Exhibits Abnormal Movement: No - Attitude and Relatedness Attitude and Relatedness: Cooperative Eye Contact: Fair - Speech Quality: Unpressured Latencies: Normal Quantity: Terse - Mood Patient's Decription of Mood: "Good" - Affect Observed Affect: Fair Affect Consistent with: Euthymia - Thought Process Patient's Thought Process: Disorganized, Loose Associations Thought Content: No Passive Wish, No Suicidal Planning, No Homicidal Ideation, No Paranoid Ideation - Sensorium Experiencing Hallucinations: No, Sensorium is Clear Type of Hallucinations: Visual: No, Auditory: No, Command: No - Level of Consciousness Level of Consciousness: Alert Orientation: Yes Orientated to Person, No Intact, No Orientated to Time, No Orientated to Place - Impulse Control Impulse Control: Poor - Insight and Judgement Insight and Judgement: Impaired - Group Participation Particating in Group Activities: No - Medication Management Medication Management Adherence: Yes Assessment - Assessment Merits Inpatient Hospitalization: Pending Safe DC Plan Inpatient DSM-IV Dx: Mild Neurocogntive Disorder Clinical Impression: 56 y.o. , AA male with no documented history of mental illness other than unspecified treatment in the skilled nursing setting, who was brought to the ER for disorganized thought process and HI, worsening over the last several months. Plan - Plan Treatment Plan: Name: SHAYAN OCAMPO Birthdate: 1960 [id number] The patient has dementia and requires a secured residential setting for his safety. MRI of brain is essentially negative for significant findings. Await SNF or family care placement. Continued Medication Management: Start Medication Medications: Current Medications Acetaminophen (Tylenol Tab*) 650 mg PO Q6H PRN PRN Reason: PAIN Last Admin: 04/10/17 08:20 Dose: 650 mg Al Hydrox/Mg Hydrox/Simethicone (Maalox Plus*) 30 ml PO Q4H PRN PRN Reason: INDIGESTION Allopurinol (Zyloprim Tab*) 100 mg PO DAILY [facility] Last Admin: 04/15/17 08:37 Dose: 100 mg Buspirone HCl (Buspar Tab*) 30 mg PO BID [facility] Last Admin: 04/15/17 08:38 Dose: 30 mg Colchicine (Colcrys*) 0.6 mg PO BID [facility] Last Admin: 04/15/17 08:38 Dose: 0.6 mg Cyanocobalamin (Vitamin B12 Tab*) 1,000 mcg PO DAILY [facility] Last Admin: 04/15/17 08:38 Dose: 1,000 mcg Device (Nicotine Mouth Piece*) 1 each INH .[facility] Last Admin: 03/12/17 16:10 Dose: 1 each Diphenhydramine HCl (Benadryl Po*) 25 mg PO Q6H PRN PRN Reason: Allergy Symptoms Last Admin: 04/04/17 14:21 Dose: 25 mg Elbasvir/Grazoprevir (Zepatier 50/100(Nf)) 1 tab PO DAILY [facility] Last Admin: 04/15/17 08:38 Dose: 1 tab Folic Acid (Folvite Tab*) 1 mg PO DAILY [facility] Last Admin: 04/15/17 08:39 Dose: 1 mg Ibuprofen (Motrin Tab*) 800 mg PO Q8H PRN PRN Reason: PAIN Last Admin: 04/12/17 08:17 Dose: 800 mg Multivitamins (Theragran Tab*) 1 tab PO DAILY [facility] Last Admin: 04/15/17 08:39 Dose: 1 tab Nicotine (Nicotine Inhaler*) 10 mg INH Q2H PRN PRN Reason: CRAVING Last Admin: 04/02/17 15:59 Dose: 10 mg Quetiapine Fumarate (Seroquel Xr Tab*) 400 mg PO BEDTIME [facility] Last Admin: 04/14/17 20:02 Dose: 400 mg - Discharge Plan Discharge Plan: Outpatient Follow Up
[2017-04-15] MEDS: QUEtiapine XR TAB* 200 MG PO SCH (20:02)
[2017-04-16] MEDS: Colchicine* 0.6 MG TAB PO SCH ×2 (08:08→20:02)
[2017-04-16] MEDS: Folic Acid TAB* 1 MG PO SCH (08:08)
[2017-04-16] MEDS: busPIRone TAB* 30 MG PO SCH ×2 (08:08→20:02)
[2017-04-16] MEDS: Cyanocobalamin TAB* 500 MCG PO SCH (08:08)
[2017-04-16] MEDS: Vitamin THERAPEUTIC TAB PO SCH (08:08)
[2017-04-16] MEDS: ELBASVIR PO SCH (08:09)
[2017-04-16] MEDS: GRAZOPREVIR PO SCH (08:09)
[2017-04-16] MEDS: Allopurinol TAB* 100 MG PO SCH (08:09)
[2017-04-16] MEDS: QUEtiapine XR TAB* 200 MG PO SCH (20:02)
[2017-04-17] MEDS: Allopurinol TAB* 100 MG PO SCH (08:08)
[2017-04-17] MEDS: Ibuprofen TAB* 800 MG PO PRN (08:08)
[2017-04-17] MEDS: Colchicine* 0.6 MG TAB PO SCH ×2 (08:09→20:16)
[2017-04-17] MEDS: Cyanocobalamin TAB* 500 MCG PO SCH (08:09)
[2017-04-17] MEDS: Vitamin THERAPEUTIC TAB PO SCH (08:09)
[2017-04-17] MEDS: Folic Acid TAB* 1 MG PO SCH (08:10)
[2017-04-17] MEDS: busPIRone TAB* 30 MG PO SCH ×2 (08:10→20:16)
[2017-04-17] MEDS: GRAZOPREVIR PO SCH (08:11)
[2017-04-17] MEDS: ELBASVIR PO SCH (08:11)
[2017-04-17] MEDS: Acetaminophen TAB* 325 MG PO PRN (09:23)
--- NOTE | 2017-04-17 11:10 | PN ---
Subjective - Subjective Service Type: [id number] Hosp care 15 min low complexity Subjective: The patient remains calm, confused and cooperative. No emergent issues on the unit. Able to go outside with peers on staff pass without incident. No complaints. Objective - Appearance Appearance: Well Developed/Nourished Dysmorphic Features: No Hygiene: Normal Grooming: Well Kept - Behavior Psychomotor Activities: Normal Exhibits Abnormal Movement: No - Attitude and Relatedness Attitude and Relatedness: Cooperative Eye Contact: Fair - Speech Quality: Unpressured Latencies: Normal Quantity: Terse - Mood Patient's Decription of Mood: "Good" - Affect Observed Affect: Fair Affect Consistent with: Euthymia - Thought Process Patient's Thought Process: Disorganized, Loose Associations Thought Content: No Passive Wish, No Suicidal Planning, No Homicidal Ideation, No Paranoid Ideation - Sensorium Experiencing Hallucinations: No, Sensorium is Clear Type of Hallucinations: Visual: No, Auditory: No, Command: No - Level of Consciousness Level of Consciousness: Alert Orientation: Yes Orientated to Person, No Intact, No Orientated to Time, No Orientated to Place - Impulse Control Impulse Control: Poor - Insight and Judgement Insight and Judgement: Impaired - Group Participation Particating in Group Activities: No - Medication Management Medication Management Adherence: Yes Assessment - Assessment Merits Inpatient Hospitalization: Pending Safe DC Plan Inpatient DSM-IV Dx: Mild Neurocogntive Disorder Clinical Impression: 56 y.o. , AA male with no documented history of mental illness other than unspecified treatment in the correction setting, who was brought to the ER for disorganized thought process and HI, worsening over the last several months. Plan - Plan Treatment Plan: Name: SHAYAN OCAMPO Birthdate: 1960 [id number] The patient has dementia and requires a secured residential setting for his safety. MRI of brain is essentially negative for significant findings. Await SNF or family care placement. Continued Medication Management: Start Medication Medications: Current Medications Acetaminophen (Tylenol Tab*) 650 mg PO Q6H PRN PRN Reason: PAIN Last Admin: 04/17/17 09:23 Dose: 650 mg Al Hydrox/Mg Hydrox/Simethicone (Maalox Plus*) 30 ml PO Q4H PRN PRN Reason: INDIGESTION Allopurinol (Zyloprim Tab*) 100 mg PO DAILY [facility] Last Admin: 04/17/17 08:08 Dose: 100 mg Buspirone HCl (Buspar Tab*) 30 mg PO BID [facility] Last Admin: 04/17/17 08:10 Dose: 30 mg Colchicine (Colcrys*) 0.6 mg PO BID [facility] Last Admin: 04/17/17 08:09 Dose: 0.6 mg Cyanocobalamin (Vitamin B12 Tab*) 1,000 mcg PO DAILY [facility] Last Admin: 04/17/17 08:09 Dose: 1,000 mcg Device (Nicotine Mouth Piece*) 1 each INH .[facility]TRIDGE [facility] Last Admin: 03/12/17 16:10 Dose: 1 each Diphenhydramine HCl (Benadryl Po*) 25 mg PO Q6H PRN PRN Reason: Allergy Symptoms Last Admin: 04/04/17 14:21 Dose: 25 mg Elbasvir/Grazoprevir (Zepatier 50/100(Nf)) 1 tab PO DAILY [facility] Last Admin: 04/17/17 08:11 Dose: 1 tab Folic Acid (Folvite Tab*) 1 mg PO DAILY [facility] Last Admin: 04/17/17 08:10 Dose: 1 mg Ibuprofen (Motrin Tab*) 800 mg PO Q8H PRN PRN Reason: PAIN Last Admin: 04/17/17 08:08 Dose: 800 mg Multivitamins (Theragran Tab*) 1 tab PO DAILY [facility] Last Admin: 04/17/17 08:09 Dose: 1 tab Nicotine (Nicotine Inhaler*) 10 mg INH Q2H PRN PRN Reason: CRAVING Last Admin: 04/02/17 15:59 Dose: 10 mg Quetiapine Fumarate (Seroquel Xr Tab*) 400 mg PO BEDTIME [facility] Last Admin: 04/16/17 20:02 Dose: 400 mg - Discharge Plan Discharge Plan: Outpatient Follow Up
[2017-04-17] MEDS: QUEtiapine XR TAB* 200 MG PO SCH (20:16)
[2017-04-18] MEDS: Folic Acid TAB* 1 MG PO SCH (08:26)
[2017-04-18] MEDS: Vitamin THERAPEUTIC TAB PO SCH (08:26)
[2017-04-18] MEDS: Cyanocobalamin TAB* 500 MCG PO SCH (08:27)
[2017-04-18] MEDS: Colchicine* 0.6 MG TAB PO SCH ×2 (08:27→20:50)
[2017-04-18] MEDS: busPIRone TAB* 30 MG PO SCH ×2 (08:27→20:50)
[2017-04-18] MEDS: Allopurinol TAB* 100 MG PO SCH (08:27)
[2017-04-18] MEDS: GRAZOPREVIR PO SCH (08:28)
[2017-04-18] MEDS: ELBASVIR PO SCH (08:28)
[2017-04-18] MEDS: QUEtiapine XR TAB* 200 MG PO SCH (20:50)
[2017-04-19] MEDS: ELBASVIR PO SCH (08:08)
[2017-04-19] MEDS: GRAZOPREVIR PO SCH (08:08)
[2017-04-19] MEDS: Cyanocobalamin TAB* 500 MCG PO SCH (08:09)
[2017-04-19] MEDS: Allopurinol TAB* 100 MG PO SCH (08:09)
[2017-04-19] MEDS: Colchicine* 0.6 MG TAB PO SCH ×2 (08:09→20:00)
[2017-04-19] MEDS: Folic Acid TAB* 1 MG PO SCH (08:09)
[2017-04-19] MEDS: busPIRone TAB* 30 MG PO SCH ×2 (08:09→20:00)
[2017-04-19] MEDS: Vitamin THERAPEUTIC TAB PO SCH (08:09)
--- NOTE | 2017-04-19 12:37 | PN ---
Subjective - Subjective Service Type: 94530 Hosp care 15 min low complexity Subjective: The patient has not demonstrated any changes in his overall clinical picture. He is confused but pleasant and no behavioral problems are evident on the unit. We have expanded his privileges to include outdoor breaks, supervised by staff , and he seems to enjoy these a great deal. Shayan never asks where he is or what he's doing here, seeming unconcerned about his situation. He continues to deny SI or HI and has done so throughout his stay with us. Objective - Appearance Appearance: Well Developed/Nourished Dysmorphic Features: No Hygiene: Normal Grooming: Fairly Well Kept - Behavior Psychomotor Activities: Normal Exhibits Abnormal Movement: No - Attitude and Relatedness Attitude and Relatedness: Cooperative Eye Contact: Fair - Speech Quality: Unpressured Latencies: Normal Quantity: Terse - Mood Patient's Decription of Mood: "Great" - Affect Observed Affect: Good Affect Consistent with: Euthymia - Thought Process Patient's Thought Process: Disorganized, Loose Associations Thought Content: No Passive Wish, No Suicidal Planning, No Homicidal Ideation, No Paranoid Ideation - Sensorium Experiencing Hallucinations: No, Sensorium is Clear Type of Hallucinations: Visual: No, Auditory: No, Command: No - Level of Consciousness Level of Consciousness: Alert Orientation: Yes Orientated to Person, No Intact, No Orientated to Time, No Orientated to Place - Impulse Control Impulse Control: Poor - Insight and Judgement Insight and Judgement: Impaired - Group Participation Particating in Group Activities: No - Medication Management Medication Management Adherence: Yes Assessment - Assessment Merits Inpatient Hospitalization: Pending Safe DC Plan Inpatient DSM-IV Dx: Mild Neurocogntive Disorder Clinical Impression: 56 y.o. , AA male with no documented history of mental illness other than unspecified treatment in the longterm setting, who was brought to the ER for disorganized thought process and HI, worsening over the last several months. Plan - Plan Treatment Plan: Name: SHAYAN OCAMPO Birthdate: 1960 [id number] The patient has dementia and requires a secured residential setting for his safety. MRI of brain is essentially negative for significant findings. Await SNF or family care placement. Continued Medication Management: Start Medication Medications: Current Medications Acetaminophen (Tylenol Tab*) 650 mg PO Q6H PRN PRN Reason: PAIN Last Admin: 04/17/17 09:23 Dose: 650 mg Al Hydrox/Mg Hydrox/Simethicone (Maalox Plus*) 30 ml PO Q4H PRN PRN Reason: INDIGESTION Allopurinol (Zyloprim Tab*) 100 mg PO DAILY [facility] Last Admin: 04/19/17 08:09 Dose: 100 mg Buspirone HCl (Buspar Tab*) 30 mg PO BID [facility] Last Admin: 04/19/17 08:09 Dose: 30 mg Colchicine (Colcrys*) 0.6 mg PO BID [facility] Last Admin: 04/19/17 08:09 Dose: 0.6 mg Cyanocobalamin (Vitamin B12 Tab*) 1,000 mcg PO DAILY [facility] Last Admin: 04/19/17 08:09 Dose: 1,000 mcg Device (Nicotine Mouth Piece*) 1 each INH .[place]TRID[facility] Last Admin: 03/12/17 16:10 Dose: 1 each Diphenhydramine HCl (Benadryl Po*) 25 mg PO Q6H PRN PRN Reason: Allergy Symptoms Last Admin: 04/04/17 14:21 Dose: 25 mg Elbasvir/Grazoprevir (Zepatier 50/100(Nf)) 1 tab PO DAILY [facility] Last Admin: 04/19/17 08:08 Dose: 1 tab Folic Acid (Folvite Tab*) 1 mg PO DAILY [facility] Last Admin: 04/19/17 08:09 Dose: 1 mg Ibuprofen (Motrin Tab*) 800 mg PO Q8H PRN PRN Reason: PAIN Last Admin: 04/17/17 08:08 Dose: 800 mg Multivitamins (Theragran Tab*) 1 tab PO DAILY [facility] Last Admin: 04/19/17 08:09 Dose: 1 tab Nicotine (Nicotine Inhaler*) 10 mg INH Q2H PRN PRN Reason: CRAVING Last Admin: 04/02/17 15:59 Dose: 10 mg Quetiapine Fumarate (Seroquel Xr Tab*) 400 mg PO BEDTIME [facility] Last Admin: 04/18/17 20:50 Dose: 400 mg - Discharge Plan Discharge Plan: Outpatient Follow Up
[2017-04-19] MEDS: QUEtiapine XR TAB* 200 MG PO SCH (20:00)
[2017-04-20] MEDS: Vitamin THERAPEUTIC TAB PO SCH (08:13)
[2017-04-20] MEDS: Allopurinol TAB* 100 MG PO SCH (08:13)
[2017-04-20] MEDS: busPIRone TAB* 30 MG PO SCH ×2 (08:13→20:01)
[2017-04-20] MEDS: Cyanocobalamin TAB* 500 MCG PO SCH (08:14)
[2017-04-20] MEDS: Colchicine* 0.6 MG TAB PO SCH ×2 (08:14→20:01)
[2017-04-20] MEDS: Folic Acid TAB* 1 MG PO SCH (08:15)
[2017-04-20] MEDS: ELBASVIR PO SCH (08:16)
[2017-04-20] MEDS: GRAZOPREVIR PO SCH (08:16)
[2017-04-20] MEDS: QUEtiapine XR TAB* 200 MG PO SCH (20:01)
[2017-04-21] MEDS: GRAZOPREVIR PO SCH (07:57)
[2017-04-21] MEDS: ELBASVIR PO SCH (07:57)
[2017-04-21] MEDS: Folic Acid TAB* 1 MG PO SCH (07:58)
[2017-04-21] MEDS: Colchicine* 0.6 MG TAB PO SCH ×2 (07:58→20:21)
[2017-04-21] MEDS: Allopurinol TAB* 100 MG PO SCH (07:58)
[2017-04-21] MEDS: busPIRone TAB* 30 MG PO SCH ×2 (07:58→20:21)
[2017-04-21] MEDS: Vitamin THERAPEUTIC TAB PO SCH (07:58)
[2017-04-21] MEDS: Cyanocobalamin TAB* 500 MCG PO SCH (07:58)
[2017-04-21] MEDS: QUEtiapine XR TAB* 200 MG PO SCH (20:21)
[2017-04-22] MEDS: Colchicine* 0.6 MG TAB PO SCH ×2 (08:18→20:02)
[2017-04-22] MEDS: Allopurinol TAB* 100 MG PO SCH (08:18)
[2017-04-22] MEDS: busPIRone TAB* 30 MG PO SCH ×2 (08:18→20:02)
[2017-04-22] MEDS: ELBASVIR PO SCH (08:19)
[2017-04-22] MEDS: Folic Acid TAB* 1 MG PO SCH (08:19)
[2017-04-22] MEDS: Cyanocobalamin TAB* 500 MCG PO SCH (08:19)
[2017-04-22] MEDS: GRAZOPREVIR PO SCH (08:19)
[2017-04-22] MEDS: Vitamin THERAPEUTIC TAB PO SCH (08:19)
[2017-04-22] MEDS: Ibuprofen TAB* 800 MG PO PRN (10:53)
--- NOTE | 2017-04-22 11:21 | PN ---
Subjective - Subjective Service Type: 44449 Hosp care 15 min low complexity Subjective: Nothing new to report on Mr. Ocampo's clinical picture. He is calm and pleasant today when we meet in the milieu. He has no complaints. Objective - Appearance Appearance: Well Developed/Nourished Dysmorphic Features: No Hygiene: Normal Grooming: Fairly Well Kept - Behavior Psychomotor Activities: Normal Exhibits Abnormal Movement: No - Attitude and Relatedness Attitude and Relatedness: Cooperative Eye Contact: Fair - Speech Quality: Unpressured Latencies: Normal Quantity: Terse - Mood Patient's Decription of Mood: "Fine" - Affect Observed Affect: Fair Affect Consistent with: Euthymia - Thought Process Patient's Thought Process: Disorganized, Loose Associations Thought Content: No Passive Wish, No Suicidal Planning, No Homicidal Ideation, No Paranoid Ideation - Sensorium Experiencing Hallucinations: No, Sensorium is Clear Type of Hallucinations: Visual: No, Auditory: No, Command: No - Level of Consciousness Level of Consciousness: Alert Orientation: Yes Orientated to Person, No Intact, No Orientated to Time, No Orientated to Place - Impulse Control Impulse Control: Poor - Insight and Judgement Insight and Judgement: Impaired - Group Participation Particating in Group Activities: No - Medication Management Medication Management Adherence: Yes Assessment - Assessment Merits Inpatient Hospitalization: Pending Safe DC Plan Inpatient DSM-IV Dx: Mild Neurocogntive Disorder Clinical Impression: 56 y.o. , AA male with no documented history of mental illness other than unspecified treatment in the assisted setting, who was brought to the ER for disorganized thought process and HI, worsening over the last several months. Plan - Plan Treatment Plan: Name: SHAYAN OCAMPO Birthdate: 1960 [id number] The patient has dementia and requires a secured residential setting for his safety. MRI of brain is essentially negative for significant findings. Await SNF or family care placement. Continued Medication Management: Start Medication Medications: Current Medications Acetaminophen (Tylenol Tab*) 650 mg PO Q6H PRN PRN Reason: PAIN Last Admin: 04/17/17 09:23 Dose: 650 mg Al Hydrox/Mg Hydrox/Simethicone (Maalox Plus*) 30 ml PO Q4H PRN PRN Reason: INDIGESTION Allopurinol (Zyloprim Tab*) 100 mg PO DAILY [facility] Last Admin: 04/22/17 08:18 Dose: 100 mg Buspirone HCl (Buspar Tab*) 30 mg PO BID [facility] Last Admin: 04/22/17 08:18 Dose: 30 mg Colchicine (Colcrys*) 0.6 mg PO BID [facility] Last Admin: 04/22/17 08:18 Dose: 0.6 mg Cyanocobalamin (Vitamin B12 Tab*) 1,000 mcg PO DAILY [facility] Last Admin: 04/22/17 08:19 Dose: 1,000 mcg Device (Nicotine Mouth Piece*) 1 each INH .CARTRIDGE [facility] Last Admin: 03/12/17 16:10 Dose: 1 each Diphenhydramine HCl (Benadryl Po*) 25 mg PO Q6H PRN PRN Reason: Allergy Symptoms Last Admin: 04/04/17 14:21 Dose: 25 mg Elbasvir/Grazoprevir (Zepatier 50/100(Nf)) 1 tab PO DAILY [facility] Last Admin: 04/22/17 08:19 Dose: 1 tab Folic Acid (Folvite Tab*) 1 mg PO DAILY [facility] Last Admin: 04/22/17 08:19 Dose: 1 mg Ibuprofen (Motrin Tab*) 800 mg PO Q8H PRN PRN Reason: PAIN Last Admin: 04/22/17 10:53 Dose: 800 mg Multivitamins (Theragran Tab*) 1 tab PO DAILY [facility] Last Admin: 04/22/17 08:19 Dose: 1 tab Nicotine (Nicotine Inhaler*) 10 mg INH Q2H PRN PRN Reason: CRAVING Last Admin: 04/02/17 15:59 Dose: 10 mg Quetiapine Fumarate (Seroquel Xr Tab*) 400 mg PO BEDTIME [facility] Last Admin: 04/21/17 20:21 Dose: 400 mg - Discharge Plan Discharge Plan: Outpatient Follow Up
[2017-04-22] MEDS: QUEtiapine XR TAB* 200 MG PO SCH (20:02)
[2017-04-23] MEDS: ELBASVIR PO SCH (07:45)
[2017-04-23] MEDS: GRAZOPREVIR PO SCH (07:45)
[2017-04-23] MEDS: Allopurinol TAB* 100 MG PO SCH (07:45)
[2017-04-23] MEDS: Vitamin THERAPEUTIC TAB PO SCH (07:45)
[2017-04-23] MEDS: busPIRone TAB* 30 MG PO SCH ×2 (07:46→19:58)
[2017-04-23] MEDS: Cyanocobalamin TAB* 500 MCG PO SCH (07:46)
[2017-04-23] MEDS: Colchicine* 0.6 MG TAB PO SCH ×2 (07:46→19:58)
[2017-04-23] MEDS: Folic Acid TAB* 1 MG PO SCH (07:46)
[2017-04-23] MEDS: QUEtiapine XR TAB* 200 MG PO SCH (19:58)
[2017-04-24] MEDS: GRAZOPREVIR PO SCH (09:20)
[2017-04-24] MEDS: Cyanocobalamin TAB* 500 MCG PO SCH (09:20)
[2017-04-24] MEDS: busPIRone TAB* 30 MG PO SCH ×2 (09:20→20:47)
[2017-04-24] MEDS: ELBASVIR PO SCH (09:20)
[2017-04-24] MEDS: Colchicine* 0.6 MG TAB PO SCH ×2 (09:20→20:47)
[2017-04-24] MEDS: Allopurinol TAB* 100 MG PO SCH (09:20)
[2017-04-24] MEDS: Folic Acid TAB* 1 MG PO SCH (09:20)
[2017-04-24] MEDS: Vitamin THERAPEUTIC TAB PO SCH (09:20)
--- NOTE | 2017-04-24 14:44 | PN ---
Subjective - Subjective Service Type: 89059 Hosp care 15 min low complexity Subjective: No changes noted in patient's presentation. He is playing cards with staff on the unit. No complaints. Objective - Appearance Appearance: Well Developed/Nourished Dysmorphic Features: No Hygiene: Normal Grooming: Fairly Well Kept - Behavior Psychomotor Activities: Normal Exhibits Abnormal Movement: No - Attitude and Relatedness Attitude and Relatedness: Cooperative Eye Contact: Fair - Speech Quality: Unpressured Latencies: Normal Quantity: Terse - Mood Patient's Decription of Mood: "Fine" - Affect Observed Affect: Good Affect Consistent with: Euthymia - Thought Process Patient's Thought Process: Disorganized, Loose Associations Thought Content: No Passive Wish, No Suicidal Planning, No Homicidal Ideation, No Paranoid Ideation - Sensorium Experiencing Hallucinations: No, Sensorium is Clear Type of Hallucinations: Visual: No, Auditory: No, Command: No - Level of Consciousness Level of Consciousness: Alert Orientation: Yes Intact, Yes Orientated to Time, Yes Orientated to Place, Yes Orientated to Person - Impulse Control Impulse Control: Poor - Insight and Judgement Insight and Judgement: Impaired - Group Participation Particating in Group Activities: No - Medication Management Medication Management Adherence: Yes Assessment - Assessment Merits Inpatient Hospitalization: Pending Safe DC Plan Inpatient DSM-IV Dx: Mild Neurocogntive Disorder Clinical Impression: 56 y.o. , AA male with no documented history of mental illness other than unspecified treatment in the longterm setting, who was brought to the ER for disorganized thought process and HI, worsening over the last several months. Plan - Plan Treatment Plan: Name: SHAYAN OCAMPO Birthdate: 1960 [id number] The patient has dementia and requires a secured residential setting for his safety. MRI of brain is essentially negative for significant findings. Await SNF or family care placement. Continued Medication Management: Start Medication Medications: Current Medications Acetaminophen (Tylenol Tab*) 650 mg PO Q6H PRN PRN Reason: PAIN Last Admin: 04/17/17 09:23 Dose: 650 mg Al Hydrox/Mg Hydrox/Simethicone (Maalox Plus*) 30 ml PO Q4H PRN PRN Reason: INDIGESTION Allopurinol (Zyloprim Tab*) 100 mg PO DAILY [facility] Last Admin: 04/24/17 09:20 Dose: 100 mg Buspirone HCl (Buspar Tab*) 30 mg PO BID [facility] Last Admin: 04/24/17 09:20 Dose: 30 mg Colchicine (Colcrys*) 0.6 mg PO BID [facility] Last Admin: 04/24/17 09:20 Dose: 0.6 mg Cyanocobalamin (Vitamin B12 Tab*) 1,000 mcg PO DAILY [facility] Last Admin: 04/24/17 09:20 Dose: 1,000 mcg Device (Nicotine Mouth Piece*) 1 each INH .[facility] Last Admin: 03/12/17 16:10 Dose: 1 each Diphenhydramine HCl (Benadryl Po*) 25 mg PO Q6H PRN PRN Reason: Allergy Symptoms Last Admin: 04/04/17 14:21 Dose: 25 mg Elbasvir/Grazoprevir (Zepatier 50/100(Nf)) 1 tab PO DAILY [facility] Last Admin: 04/24/17 09:20 Dose: 1 tab Folic Acid (Folvite Tab*) 1 mg PO DAILY [facility] Last Admin: 04/24/17 09:20 Dose: 1 mg Ibuprofen (Motrin Tab*) 800 mg PO Q8H PRN PRN Reason: PAIN Last Admin: 04/22/17 10:53 Dose: 800 mg Multivitamins (Theragran Tab*) 1 tab PO DAILY [facility] Last Admin: 04/24/17 09:20 Dose: 1 tab Nicotine (Nicotine Inhaler*) 10 mg INH Q2H PRN PRN Reason: CRAVING Last Admin: 04/02/17 15:59 Dose: 10 mg Quetiapine Fumarate (Seroquel Xr Tab*) 400 mg PO BEDTIME [facility] Last Admin: 04/23/17 19:58 Dose: 400 mg - Discharge Plan Discharge Plan: Outpatient Follow Up
[2017-04-24] MEDS: QUEtiapine XR TAB* 200 MG PO SCH (20:47)
[2017-04-25] MEDS: ELBASVIR PO SCH (07:41)
[2017-04-25] MEDS: GRAZOPREVIR PO SCH (07:41)
[2017-04-25] MEDS: Folic Acid TAB* 1 MG PO SCH (07:42)
[2017-04-25] MEDS: Cyanocobalamin TAB* 500 MCG PO SCH (07:42)
[2017-04-25] MEDS: Allopurinol TAB* 100 MG PO SCH (07:42)
[2017-04-25] MEDS: Vitamin THERAPEUTIC TAB PO SCH (07:42)
[2017-04-25] MEDS: Colchicine* 0.6 MG TAB PO SCH ×2 (07:42→19:59)
[2017-04-25] MEDS: busPIRone TAB* 30 MG PO SCH ×2 (07:42→19:59)
[2017-04-25] MEDS: QUEtiapine XR TAB* 200 MG PO SCH (19:59)
[2017-04-26] MEDS: Allopurinol TAB* 100 MG PO SCH (07:33)
[2017-04-26] MEDS: Vitamin THERAPEUTIC TAB PO SCH (07:33)
[2017-04-26] MEDS: busPIRone TAB* 30 MG PO SCH ×2 (07:33→20:00)
[2017-04-26] MEDS: Folic Acid TAB* 1 MG PO SCH (07:33)
[2017-04-26] MEDS: Cyanocobalamin TAB* 500 MCG PO SCH (07:33)
[2017-04-26] MEDS: ELBASVIR PO SCH (07:34)
[2017-04-26] MEDS: GRAZOPREVIR PO SCH (07:34)
[2017-04-26] MEDS: Colchicine* 0.6 MG TAB PO SCH ×2 (07:34→20:00)
--- NOTE | 2017-04-26 12:18 | PN ---
Subjective - Subjective Service Type: 60077 Hosp care 15 min low complexity Subjective: Remains calm and under behavioral control. Staff reports that his sister Indira, from [place], will be coming to pick him up this April 28, to take him with her to live in [place]. Patient appears aware and in favor of this placement. He continues to deny SI or HI. Objective - Appearance Appearance: Well Developed/Nourished Dysmorphic Features: No Grooming: Fairly Well Kept - Behavior Psychomotor Activities: Normal Exhibits Abnormal Movement: No - Attitude and Relatedness Attitude and Relatedness: Cooperative Eye Contact: Fair - Speech Quality: Unpressured Latencies: Normal Quantity: Terse - Mood Patient's Decription of Mood: "Good" - Affect Observed Affect: Fair Affect Consistent with: Euthymia - Thought Process Patient's Thought Process: Disorganized, Loose Associations Thought Content: No Passive Wish, No Suicidal Planning, No Homicidal Ideation, No Paranoid Ideation - Sensorium Experiencing Hallucinations: No, Sensorium is Clear Type of Hallucinations: Visual: No, Auditory: No, Command: No - Level of Consciousness Level of Consciousness: Alert Orientation: Yes Orientated to Person, No Intact, No Orientated to Time, No Orientated to Place - Impulse Control Impulse Control: Poor - Insight and Judgement Insight and Judgement: Impaired - Group Participation Particating in Group Activities: No - Medication Management Medication Management Adherence: Yes Assessment - Assessment Merits Inpatient Hospitalization: Pending Safe DC Plan Inpatient DSM-IV Dx: Mild Neurocogntive Disorder Clinical Impression: 56 y.o. , AA male with no documented history of mental illness other than unspecified treatment in the senior care setting, who was brought to the ER for disorganized thought process and HI, worsening over the last several months. Plan - Plan Treatment Plan: Name: SHAYAN OCAMPO Birthdate: 1960 [id number] The patient has dementia and requires a supportive environment, which family ensures they will provide him. MRI of brain is essentially negative for significant findings. Await d/c to sister's home in [place] this weekend (04/28). Continued Medication Management: Start Medication Medications: Current Medications Acetaminophen (Tylenol Tab*) 650 mg PO Q6H PRN PRN Reason: PAIN Last Admin: 04/17/17 09:23 Dose: 650 mg Al Hydrox/Mg Hydrox/Simethicone (Maalox Plus*) 30 ml PO Q4H PRN PRN Reason: INDIGESTION Allopurinol (Zyloprim Tab*) 100 mg PO DAILY [facility] Last Admin: 04/26/17 07:33 Dose: 100 mg Buspirone HCl (Buspar Tab*) 30 mg PO BID [facility] Last Admin: 04/26/17 07:33 Dose: 30 mg Colchicine (Colcrys*) 0.6 mg PO BID [facility] Last Admin: 04/26/17 07:34 Dose: 0.6 mg Cyanocobalamin (Vitamin B12 Tab*) 1,000 mcg PO DAILY [facility] Last Admin: 04/26/17 07:33 Dose: 1,000 mcg Device (Nicotine Mouth Piece*) 1 each INH .[facility]TRID[facility] Last Admin: 03/12/17 16:10 Dose: 1 each Diphenhydramine HCl (Benadryl Po*) 25 mg PO Q6H PRN PRN Reason: Allergy Symptoms Last Admin: 04/04/17 14:21 Dose: 25 mg Elbasvir/Grazoprevir (Zepatier 50/100(Nf)) 1 tab PO DAILY [facility] Last Admin: 04/26/17 07:34 Dose: 1 tab Folic Acid (Folvite Tab*) 1 mg PO DAILY [facility] Last Admin: 04/26/17 07:33 Dose: 1 mg Ibuprofen (Motrin Tab*) 800 mg PO Q8H PRN PRN Reason: PAIN Last Admin: 04/22/17 10:53 Dose: 800 mg Multivitamins (Theragran Tab*) 1 tab PO DAILY [facility] Last Admin: 04/26/17 07:33 Dose: 1 tab Nicotine (Nicotine Inhaler*) 10 mg INH Q2H PRN PRN Reason: CRAVING Last Admin: 04/02/17 15:59 Dose: 10 mg Quetiapine Fumarate (Seroquel Xr Tab*) 400 mg PO BEDTIME [facility] Last Admin: 04/25/17 19:59 Dose: 400 mg - Discharge Plan Discharge Plan: Outpatient Follow Up
[2017-04-26] MEDS: QUEtiapine XR TAB* 200 MG PO SCH (20:01)
[2017-04-27] MEDS: Folic Acid TAB* 1 MG PO SCH (07:04)
[2017-04-27] MEDS: Allopurinol TAB* 100 MG PO SCH (07:04)
[2017-04-27] MEDS: Vitamin THERAPEUTIC TAB PO SCH (07:04)
[2017-04-27] MEDS: Colchicine* 0.6 MG TAB PO SCH ×2 (07:04→20:05)
[2017-04-27] MEDS: Cyanocobalamin TAB* 500 MCG PO SCH (07:04)
[2017-04-27] MEDS: busPIRone TAB* 30 MG PO SCH ×2 (07:04→20:05)
[2017-04-27] MEDS: ELBASVIR PO SCH (07:05)
[2017-04-27] MEDS: GRAZOPREVIR PO SCH (07:05)
[2017-04-27] MEDS: QUEtiapine XR TAB* 200 MG PO SCH (20:06)
[2017-04-28 07:43] VITALS: BP 118/74
[2017-04-28] MEDS: ELBASVIR PO SCH (08:14)
[2017-04-28] MEDS: GRAZOPREVIR PO SCH (08:14)
[2017-04-28] MEDS: Folic Acid TAB* 1 MG PO SCH (08:15)
[2017-04-28] MEDS: Cyanocobalamin TAB* 500 MCG PO SCH (08:15)
[2017-04-28] MEDS: Allopurinol TAB* 100 MG PO SCH (08:15)
[2017-04-28] MEDS: busPIRone TAB* 30 MG PO SCH (08:15)
[2017-04-28] MEDS: Colchicine* 0.6 MG TAB PO SCH (08:16)
[2017-04-28] MEDS: Vitamin THERAPEUTIC TAB PO SCH (08:16)
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
== END 2017-04-28 12:00 | disposition home or self-care (01) | DRG 775 ==
LOC: ED 13:27 → BSU 23:03
PROVIDERS: ADMIT Psychiatry & Neurology Psychiatry; ATTEND Psychiatry & Neurology Psychiatry
PROC: GZHZZZZ Group Psychotherapy (ICD-10-PCS; principal; 2017-03-11)
PROC: 0HBRXZZ Excision of Toe Nail, External Approach (ICD-10-PCS; 2017-03-25)
DX: F10.27 Alcohol dependence with alcohol-induced persisting dementia (principal); R45.850 Homicidal ideations; I10 Essential (primary) hypertension; F32.9 Major depressive disorder, single episode, unspecified; I00 Rheumatic fever without heart involvement; F29 Unspecified psychosis not due to a substance or known physiological condition; R45.4 Irritability and anger; G47.00 Insomnia, unspecified; M17.0 Bilateral primary osteoarthritis of knee; M10.9 Gout, unspecified; F17.210 Nicotine dependence, cigarettes, uncomplicated; B19.20 Unspecified viral hepatitis C without hepatic coma; Y90.6 Blood alcohol level of 120-199 mg/100 ml; S90.211A Contusion of right great toe with damage to nail, initial encounter; Y93.41 Activity, dancing; Z88.6 Allergy status to analgesic agent; Z82.49 Family history of ischemic heart disease and other diseases of the circulatory system; Z85.46 Personal history of malignant neoplasm of prostate; Z56.0 Unemployment, unspecified; Z72.89 Other problems related to lifestyle; Z90.79 Acquired absence of other genital organ(s); Y92.9 Unspecified place or not applicable
CPT/HCPCS: 36415; 70450; 70551; 80053; 80061; 80307; 80320; 80329; 81003; 82607; 83036; 84443; 85025; 87522; 90853; 96102; 99222; 99231; 99238; 99406; A9270-GY; G0480